=== PATIENT | female | born 1970 | race Caucasian/White ===

== ENCOUNTER → 2018-01-13 | Outpatient (CLI) | payer OTHER ==
--- NOTE | 2018-01-13 16:11 | NM ---
EXAMINATION TYPE: NM bone 3 phase DATE OF EXAM: 01/13/2018 COMPARISON: NONE HISTORY: Osteomyelitis Triple phase bone scintigraphy was performed following the injection of 25.3 mCi Tc 99m MDP. Immedia te images and 5.5 hours post injection images acquired. FINDINGS: Blood flow: Slight increase early flow is in the distal right lower extremity compared to the left. Blood pool: There is increased radiotracer accumulation over the lateral right distal foot compared t o the left on blood pool images. Static images: There is increased radiotracer accumulation within the tarsal regions of the feet bila terally. Abnormal uptake within the distal right foot is not evident IMPRESSION: 1. Uptake pattern appears more suggestive for degenerative changes of the proximal foot. 2. No suspicious changes suggest osteomyelitis are evident. 3. Correlate for possible collection along lateral right foot soft tissues
--- NOTE | 2018-01-13 16:36 | XR ---
EXAMINATION TYPE: XR foot complete RT DATE OF EXAM: 01/13/2018 COMPARISON: None HISTORY: Osteomyelitis right foot distal fifth metatarsal region TECHNIQUE: Three-view right foot FINDINGS: Prominent soft tissue swelling is over the distal fifth metatarsal phalangeal joint space. No underlying radiopaque foreign body is evident. There is a spur at the distal metaphyseal fifth met atarsal. IMPRESSION: 1. No acute changes to suggest osteomyelitis. 2. Soft tissue swelling right foot at the lateral fifth metatarsal phalangeal joint space.
== END | disposition home or self-care (01) ==
LOC: RADNMMAIN 07:38
PROVIDERS: ATTEND Podiatrist Foot & Ankle Surgery
DX: M79.89 Other specified soft tissue disorders (principal)
CPT/HCPCS: 73630; 78315; A9503

== ENCOUNTER → 2018-06-03 | Outpatient (CLI) | payer OTHER ==
--- NOTE | 2018-06-03 12:51 | XR ---
EXAMINATION TYPE: XR foot complete RT DATE OF EXAM: 06/03/2018 CLINICAL HISTORY: Right foot ulcer TECHNIQUE: Frontal, lateral, and oblique images of the right foot are obtained. COMPARISON: 01/13/2018 FINDINGS: Focal soft tissue swelling is seen over the fifth right metatarsal phalangeal joint. Small new osseous erosions are seen of the proximal fifth phalanx proximally and distally, marked on the im ages. No periosteal reaction is evident. Marginal osteophytes of the distal phalanges relate to mild forefoot arthropathy. There are small buster ntar and Achilles enthesophytes noted. IMPRESSION: Two new areas of cortical erosion within the fifth proximal phalanx adjacent to the large soft tissue abnormality overlying the fifth metatarsophalangeal joint. Cortical erosion is suspiciou s for osteomyelitis and could be confirmed with three-phase bone scan.
--- NOTE | 2018-06-03 13:47 | NM ---
EXAMINATION TYPE: NM bone 3 phase DATE OF EXAM: 06/03/2018 COMPARISON: Radiographs of the right foot dated 06/03/2018 HISTORY: Right foot ulceration progressed from the exam of 01/13/2018 with concern for osteomyelitis. Right foot pain. Triple phase bone scintigraphy was performed following the injection of 25.1 mCi Tc 99m MDP. Immedia te images and 5.25 hours post injection images acquired. FINDINGS: There is increased flow, blood pool, and subtle delayed uptake to the fifth metatarsophalan geal joint region and proximal fifth phalanx on the right. Uptake on delayed images only within the h indfeet and mid feet relate to degenerative change. IMPRESSION: Mild uptake on 3 phases at the fifth metatarsophalangeal joint and proximal phalanx on th e right that when correlated with the foot radiographs of the same date represent osteomyelitis of th e proximal fifth phalanx of the right foot.
== END | disposition home or self-care (01) ==
LOC: RADNMMAIN 07:27
PROVIDERS: ATTEND Podiatrist Foot & Ankle Surgery
DX: R93.7 Abnormal findings on diagnostic imaging of other parts of musculoskeletal system (principal); M86.171 Other acute osteomyelitis, right ankle and foot
CPT/HCPCS: 73630; 78315; A9503

== ENCOUNTER → 2018-07-01 | Outpatient (CLI) | payer OTHER ==
[2018-07-01 12:58] LABS: HCT 46.8 % (34.0-46.0); HGB 14.9 gm/dL (11.4-16.0); MCH 26.2 pg (25.0-35.0); MCHC 31.8 g/dL (31.0-37.0); MCV 82.2 fL (80.0-100.0); Mean Platelet Volume 6.8; Platelet Count 264 k/uL (150-450); RBC 5.69 m/uL (3.80-5.40); RDW 13.6 % (11.5-15.5); WBC 8.4 k/uL (3.8-10.6)
[2018-07-01 14:11] LABS: Erythrocyte Sedimentation Rate 5 mm/hr (0-20)
[2018-07-01 20:26] LABS: ALT 36 U/L (8-44); AST 25 U/L (13-35); Alkaline Phosphatase 99 U/L (41-126); C Reactive Protein <0.4 mg/dL (0.0-0.8); Chloride 102 mmol/L (96-109); Globulin 2.2 g/dL (1.6-3.3); Glucose 289 mg/dL (70-110); Sodium 140 mmol/L (135-145); Total Bilirubin 0.3 mg/dL (0.2-1.2); Total Protein 6.6 g/dL (6.2-8.2)
[2018-07-01 22:12] LABS: Hemoglobin A1C 11.2 % (4.0-6.0)
== END | disposition home or self-care (01) ==
LOC: LABWHC1 11:33
PROVIDERS: ATTEND Internal Medicine Infectious Disease
DX: E13.621 Other specified diabetes mellitus with foot ulcer (principal); L97.509 Non-pressure chronic ulcer of other part of unspecified foot with unspecified severity
CPT/HCPCS: 36415; 80053; 83036; 84134; 85027; 85652; 86140

== ENCOUNTER 2018-07-25 07:44 | Emergency (ER) | payer OTHER ==
[2018-07-25 07:49] VITALS: RESP 18
[2018-07-25] MEDS ORDERED: SODIUM CHLORIDE 0.9% 1,000 ML IV STA (07:50)
[2018-07-25] MEDS ORDERED: ACETAMINOPHEN TAB 325 MG TAB PO STA (07:58)
[2018-07-25] MEDS ORDERED: KETOROLAC 30 MG/ML 1 ML VIAL IVP STA (07:58)
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
[2018-07-25 08:28] LABS: Basophils # (A) 0.1 k/uL (0-0.2); Basophils % (A) 0 %; Eosinophils # (A) 0.2 k/uL (0-0.7); Eosinophils % (A) 1 %; HGB 13.9 gm/dL (11.4-16.0); Lymphocytes # (A) 1.1 k/uL (1.0-4.8); Lymphocytes % (A) 6 %; MCH 25.8 pg (25.0-35.0); MCHC 32.4 g/dL (31.0-37.0); MCV 79.9 fL (80.0-100.0); Mean Platelet Volume 7.2; Monocytes # (A) 1.1 k/uL (0-1.0); Monocytes % (A) 6 %; Neutrophils % (A) 86 %; Platelet Count 258 k/uL (150-450); RBC 5.39 m/uL (3.80-5.40); RDW 13.5 % (11.5-15.5); WBC 18.6 k/uL (3.8-10.6)
[2018-07-25 08:37] LABS: Appearance,Urine Turbid (Clear); Bilirubin,Urine Negative (Negative); Blood,Urine Moderate (Negative); Color,Urine Light Yellow; Glucose,Urine (UA) 4+ (Negative); Ketones,Urine Negative (Negative); Leukocyte Esterase,Urine Large (Negative); Nitrite,Urine Negative (Negative); Protein,Urine 2+ (Negative); RBC,Urine 8 /hpf (0-5); Specific Gravity,Urine 1.016 (1.001-1.035); Urobilinogen,Urine <2.0 mg/dL (<2.0)
[2018-07-25 08:44] LABS: ALT 38 U/L (9-52); AST 32 U/L (14-36); Alkaline Phosphatase 135 U/L (38-126); Anion Gap 11 mmol/L; Blood Urea Nitrogen 16 mg/dL (7-17); Calcium 9.2 mg/dL (8.4-10.2); Carbon Dioxide 23 mmol/L (22-30); Chloride 101 mmol/L (98-107); Glucose 311 mg/dL (74-99); Lipase 88 U/L (23-300); Potassium 4.5 mmol/L (3.5-5.1); Sodium 135 mmol/L (137-145); Total Bilirubin 0.6 mg/dL (0.2-1.3); Total Protein 7.1 g/dL (6.3-8.2)
[2018-07-25 09:21] VITALS: BP 120/68; PULSE 102; TEMP 100.3
[2018-07-25] MEDS ORDERED: TOBRAMYCIN 0.3% OPHTH DROPS 5 ML BTL BOTH EYES STA (09:56)
== END 2018-07-25 10:04 | disposition home or self-care (01) ==
LOC: EC 07:44
DX: N12 Tubulo-interstitial nephritis, not specified as acute or chronic (principal); I11.0 Hypertensive heart disease with heart failure; I50.9 Heart failure, unspecified; E11.9 Type 2 diabetes mellitus without complications; E78.5 Hyperlipidemia, unspecified; M19.90 Unspecified osteoarthritis, unspecified site; Z86.14 Personal history of Methicillin resistant Staphylococcus aureus infection; Z95.818 Presence of other cardiac implants and grafts; Z87.891 Personal history of nicotine dependence; Z90.49 Acquired absence of other specified parts of digestive tract; Z87.19 Personal history of other diseases of the digestive system; Z98.890 Other specified postprocedural states; Z79.82 Long term (current) use of aspirin; Z79.1 Long term (current) use of non-steroidal anti-inflammatories (NSAID); Z79.84 Long term (current) use of oral hypoglycemic drugs; Z79.899 Other long term (current) drug therapy
CPT/HCPCS: 36415; 80053; 83605; 83690; 85025; 81001; 87040; 87086; 99283; 96365; 96375; 96361; J0696; J1885; 87077; 87186

== ENCOUNTER → 2018-08-03 | Outpatient (CLI) | payer OTHER ==
--- NOTE | 2018-08-04 09:08 | MR ---
MR left foot with and without contrast HISTORY: Osteomyelitis left foot first toe Multiplanar multisequence and postcontrast images obtained through the left foot following 7.5 cc Leonard avist IV. Correlation to bone scan 06/03/2018, no recent plain film available. There is motion on the exam. There is soft tissue intermediate signal at the level of the first digit of the left foot, bone marro w signal is maintained. Arthropathy noted at the metatarsophalangeal joint of the first digit and int ertarsal joints. There is enhancement of the soft tissues especially at the first digit of the left f oot following contrast administration. No evident periosteal reaction. Flexor and extensor tendons ar e intact. IMPRESSION: Findings compatible with cellulitis. Osteomyelitis is not evident.
== END | disposition home or self-care (01) ==
LOC: RADMRIMAIN 15:15
PROVIDERS: ATTEND Internal Medicine Infectious Disease
DX: M86.8X8 Other osteomyelitis, other site (principal)
CPT/HCPCS: 73720; A9585

== ENCOUNTER → 2018-08-10 | Outpatient (CLI) | payer OTHER ==
--- NOTE | 2018-08-10 13:52 | MR ---
EXAMINATION TYPE: MR foot RT wo/w con DATE OF EXAM: 08/10/2018 COMPARISON: Right foot radiograph dated 06/03/2018 and 3 phase bone scan dated 06/03/2018 HISTORY: Area of interest on ball of foot at 5th digit, marked area CONTRAST: Standard multiplanar, multisequence MRI departmental protocol utilizing 7.5 mL intravenous Gadavist g adolinium contrast. FINDINGS: There is an elongated STIR hyperintense, T1 hypointense, peripherally enhancing elongated f luid collection measuring 1.8 cm in anterior posterior dimension but only 3 mm in transverse dimensio n (greatest thickness). This is seen deep to the area of interest demarcated by a superficial marker. There is pronounced focal subcutaneous edema demonstrated as enhancing T1 hypointensity lateral and at the plantar surface of the fifth metatarsal phalangeal joint. However there is no T1 hypointense i nfiltrating nonenhancing process of the bone marrow throughout the left foot to indicate osteomyeliti s. Small marginal osteophytes are seen of the distal interphalangeal joints and to a lesser degree th e proximal phalangeal joint and metatarsophalangeal joints. Tendons and ligaments appear grossly inta ct. Small joint effusion is also seen of the fifth metatarsal phalangeal joint. IMPRESSION: Cellulitis and elongated abscess measuring 3 mm in greatest thickness lateral to the fifth right meta tarsal phalangeal joint. Extensive subcutaneous edema surrounds the plantar aspect of the fifth metat arsal phalangeal joint and there is a small joint effusion however there is no evidence of osteomyeli tis.
== END | disposition home or self-care (01) ==
LOC: RADMRIMAIN 12:26
PROVIDERS: ATTEND Internal Medicine Infectious Disease
DX: L03.031 Cellulitis of right toe (principal)
CPT/HCPCS: 73720; A9585

== ENCOUNTER 2018-09-07 20:41 | Inpatient (IN) | payer OTHER ==
[2018-09-07] MEDS ORDERED: cefTRIAXone IN SWFI 1,000 MG/10 ML SYRINGE IVP STA (21:49)
[2018-09-07 22:11] LABS: Basophils # (A) 0.1 k/uL (0-0.2); Basophils % (A) 1 %; Eosinophils # (A) 0.2 k/uL (0-0.7); Eosinophils % (A) 3 %; HCT 39.1 % (34.0-46.0); HGB 12.6 gm/dL (11.4-16.0); Lymphocytes # (A) 1.8 k/uL (1.0-4.8); Lymphocytes % (A) 21 %; MCHC 32.3 g/dL (31.0-37.0); MCV 80.4 fL (80.0-100.0); Mean Platelet Volume 7.5; Monocytes # (A) 0.6 k/uL (0-1.0); Monocytes % (A) 7 %; Neutrophils # (A) 5.8 k/uL (1.3-7.7); Neutrophils % (A) 66 %; Platelet Count 304 k/uL (150-450); RBC 4.86 m/uL (3.80-5.40); RDW 14.2 % (11.5-15.5); WBC 8.8 k/uL (3.8-10.6)
[2018-09-07] MEDS: SODIUM CHLORIDE 0.9% 500 ML 500 ML IV SCH ×2 (22:14→22:44)
[2018-09-07 22:26] LABS: ALT 44 U/L (9-52); AST 19 U/L (14-36); Albumin 3.7 g/dL (3.5-5.0); Alkaline Phosphatase 98 U/L (38-126); Anion Gap 8 mmol/L; Blood Urea Nitrogen 21 mg/dL (7-17); Calcium 9.6 mg/dL (8.4-10.2); Carbon Dioxide 29 mmol/L (22-30); Chloride 99 mmol/L (98-107); Glucose 234 mg/dL (74-99); Sodium 136 mmol/L (137-145); Total Bilirubin 0.3 mg/dL (0.2-1.3); Total Protein 6.6 g/dL (6.3-8.2)
[2018-09-07 22:27] LABS: Appearance,Urine Clear (Clear); Bilirubin,Urine Negative (Negative); Blood,Urine Negative (Negative); Color,Urine Light Yellow; Glucose,Urine (UA) 4+ (Negative); Ketones,Urine Negative (Negative); Leukocyte Esterase,Urine Moderate (Negative); Mucus,Urine Rare /hpf; Nitrite,Urine Negative (Negative); PH, Urine 5.5 (5.0-8.0); Protein,Urine Negative (Negative); RBC,Urine 1 /hpf (0-5); Squamous Epithelial Cell,Urine 2 /hpf (0-4); Urobilinogen,Urine <2.0 mg/dL (<2.0); WBC,Urine 7 /hpf (0-5)
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
--- NOTE | 2018-09-07 23:01 | XR ---
EXAM: XR Right Foot Complete, 3 or More Views CLINICAL HISTORY: ITS.REASON XR Reason: cellulitis TECHNIQUE: Frontal, lateral and oblique views of the right foot. COMPARISON: 06/03/2018 x-ray and 08/10/2018 MRI FINDINGS: Bones/joints: Small erosion of the proximal medial aspect of the proximal phalanx of the fifth digit, appears new since prior. Similar small erosion at the distal lateral aspect. Calcaneal enthesophytes. No acute fracture. No dislocation. Soft tissues: Soft tissue swelling adjacent to the fifth metatarsophalangeal joint laterally. Appears similar to the priors. Somewhat more mottled appearance of the fat near the fifth MTP joint as well as other areas in the foot and lower leg. No radiopaque foreign body. IMPRESSION: 1. Soft tissue swelling adjacent to the fifth metatarsophalangeal joint laterally. Appears similar to the priors. Somewhat more mottled appearance of the fat near the fifth MTP joint as well as other areas in the foot and lower leg. This may reflect increased edema. However, soft tissue gas, not excluded. 2. Small erosion of the proximal medial aspect of the proximal phalanx of the fifth digit, appears new since prior. Similar small erosion at the distal lateral aspect. 3. Could consider CT to better assess for soft tissue gas and possibly follow-up MRI to better assess for osteomyelitis. <MYCVCSECTION> Critical [employer] 09/07/18 23:15 Verify Receipt Verified receipt with PA. Han on 09/07 23:14 (-04:00) 09/07/18 23:29 Call From [facility] Tech Called on 09/07 23:29 (- 04:00)
[2018-09-07] MEDS ORDERED: CLINDAMYCIN 600 MG in DEXTROSE 5% IN WATER 50 ML IVPB STA ×2 (23:39)
[2018-09-07] MEDS ORDERED: ONDANSETRON 4 MG/2 ML VIAL IVP PRN (23:51)
[2018-09-07] MEDS ORDERED: ACETAMINOPHEN TAB 325 MG TAB PO PRN (23:51)
[2018-09-07] MEDS ORDERED: NALOXONE 0.4 MG/ML 1 ML VIAL IV PRN (23:51)
[2018-09-08] MEDS: SODIUM CHLORIDE 0.9% 1,000 ML IV SCH ×3 (00:27→21:48)
--- NOTE | 2018-09-08 00:28 | CT ---
EXAM: CT Right Lower Extremity With Intravenous Contrast, Foot CLINICAL HISTORY: ITS.REASON CT Reason: Pain, cellulitis TECHNIQUE: Axial computed tomography images of the right foot with intravenous contrast. CTDI is 8.6 mGy and DLP is 229.3 mGy-cm. This CT exam was performed using one or more of the following dose reduction techniques: automated exposure control, adjustment of the mA and/or kV according to patient size, and/or use of iterative reconstruction technique. COMPARISON: X-ray today and 06/03/2018; MRI 08/10/18. FINDINGS: Bones/joints: Small erosions of the fifth proximal phalanx along the lateral aspect distally and medial aspect proximally. Query small joint effusion. No acute fracture. No dislocation. Soft tissues: No evidence of soft tissue gas. Soft tissue swelling adjacent to the fifth metatarsophalangeal joint, similar to the prior studies. Overall mild increase of the soft tissue edema of the foot, mostly along the lateral and dorsal foot. As on the prior MRI, there is a small irregular rim-enhancing fluid collection along the lateral and plantar aspect of the fifth distal metatarsal and MTP joint. It is similar or slightly larger along the plantar aspect. Appears to be just subjacent to the skin surface. Measures approximately 17 x 16 x 7 mm at the plantar aspect. No radiopaque foreign body. IMPRESSION: 1. No evidence of soft tissue gas. 2. Small rim-enhancing fluid collection along the lateral and plantar aspect of the fifth distal MTP joint region, similar or slightly larger than the prior MRI. 3. Mildly increased soft tissue swelling mostly along the lateral and dorsal aspect of the foot. 4. Small erosions of the fifth proximal phalanx. 5. Query small joint effusion at the fifth MTP joint <MYCVCSECTION> Critical [employer] 09/08/18 00:39 Verify Receipt Verified receipt with FUNMI Martin, given to Dr. May on 09/08 00:39 (-04:00)
[2018-09-08 07:21] LABS: Glucose,Whole Blood 232 mg/dL (75-99)
[2018-09-08] MEDS: MELOXICAM 7.5 MG TAB PO SCH (10:32)
[2018-09-08] MEDS: MECLIZINE 25 MG TAB PO SCH ×3 (10:33→21:15)
[2018-09-08] MEDS: LISINOPRIL 2.5 MG TAB PO SCH (10:33)
[2018-09-08] MEDS: FUROSEMIDE 20 MG TAB PO SCH (10:33)
[2018-09-08] MEDS: CYCLOBENZAPRINE 10 MG TAB PO SCH ×2 (10:33→21:15)
[2018-09-08] MEDS: MULTIVITAMINS, THERA 1 EACH TAB PO SCH (10:34)
[2018-09-08] MEDS: ASPIRIN 81 MG PO SCH (10:34)
[2018-09-08] MEDS: SPIRONOLACTONE 25 MG TAB PO SCH (10:34)
[2018-09-08] MEDS: metFORMIN 500 MG TAB PO SCH ×2 (10:34→21:15)
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
[2018-09-08 12:05] LABS: Glucose,Whole Blood 259 mg/dL (75-99)
[2018-09-08 17:04] LABS: Glucose,Whole Blood 219 mg/dL (75-99)
[2018-09-08] MEDS: glipiZIDE 10 MG TAB PO SCH (17:33)
[2018-09-08] MEDS: ATORVASTATIN 10 MG TAB PO SCH (21:15)
[2018-09-08 21:24] LABS: Glucose,Whole Blood 204 mg/dL (75-99)
[2018-09-09] MEDS: SODIUM CHLORIDE 0.9% 1,000 ML IV SCH ×2 (04:58→16:23)
[2018-09-09 07:15] LABS: Glucose,Whole Blood 146 mg/dL (75-99)
[2018-09-09] MEDS: MELOXICAM 7.5 MG TAB PO SCH (07:42)
[2018-09-09] MEDS: SPIRONOLACTONE 25 MG TAB PO SCH (07:42)
[2018-09-09] MEDS: metFORMIN 500 MG TAB PO SCH ×2 (07:42→19:38)
[2018-09-09] MEDS: MECLIZINE 25 MG TAB PO SCH ×3 (07:42→19:38)
[2018-09-09] MEDS: CYCLOBENZAPRINE 10 MG TAB PO SCH ×2 (07:44→19:38)
[2018-09-09] MEDS: LISINOPRIL 2.5 MG TAB PO SCH (07:44)
[2018-09-09] MEDS: ASPIRIN 81 MG PO SCH (07:44)
[2018-09-09] MEDS: glipiZIDE 10 MG TAB PO SCH ×2 (07:44→16:25)
[2018-09-09] MEDS: MULTIVITAMINS, THERA 1 EACH TAB PO SCH (07:44)
[2018-09-09] MEDS: FUROSEMIDE 20 MG TAB PO SCH (07:44)
[2018-09-09 11:32] LABS: Glucose,Whole Blood 174 mg/dL (75-99)
--- NOTE | 2018-09-09 12:03 | P.PN ---
Subjective Conferred with Dr. Gavin. His requesting Dr. Mart for I&D of right foot Objective - Vital Signs Vital signs: Vital Signs Temp 98.0 F 09/09/18 07:00 Pulse 77 09/09/18 08:00 Resp 16 09/09/18 08:00 BP 129/83 09/09/18 07:00 Pulse Ox 97 09/09/18 07:00 Intake & Output 09/08/18 09/09/18 09/09/18 18:59 06:59 18:59 Intake Total 2594 1800 Output Total 1500 Balance 2594 1800 -1500 Intake: Intake, IV Titration 800 800 Amount Sodium Chloride 0.9% 1, 800 800 000 ml @ 100 mls/hr IV . Q10H SHANNAN Rx#:[id number] Oral 1794 1000 Output: Urine 1500 Other: Voiding Method Toilet Bedside Commode Bedside Commode # Voids 1 2 - Constitutional General appearance: Present: mild distress - EENT Eyes: Present: PERRLA Ears: bilateral: normal - Neck Neck: Present: normal ROM - Respiratory Respiratory: bilateral: CTA - Cardiovascular Rhythm: regular - Gastrointestinal General gastrointestinal: Present: soft - Integumentary Integumentary Comment(s): Erythema to right foot ankle Integumentary: Present: cellulitis - Neurologic Neurologic: Present: CNII-XII intact - Musculoskeletal Musculoskeletal: Present: generalized weakness - Psychiatric Psychiatric: Present: A&O x's 3, appropriate affect, intact judgment & insight - Labs CBC & Chem 7: 09/07/18 22:00 09/07/18 22:00 Labs: Abnormal Lab Results - Last 24 Hours (Table) 09/08/18 09/08/18 09/08/18 Range/Units 11:49 16:52 21:07 POC Glucose (mg/dL) 259 H 219 H 204 H (75-99) mg/dL 09/09/18 09/09/18 Range/Units 07:07 11:17 POC Glucose (mg/dL) 146 H 174 H (75-99) mg/dL Microbiology - Last 24 Hours (Table) 09/07/18 22:00 Blood Culture - Preliminary Blood No Growth after 24 hours 09/07/18 22:00 Urine Culture - Preliminary Urine,Voided Assessment and Plan Plan: Assessment Cellulitis right foot chronic diabetic ulcer failed outpatient positive Klebsiella Heart failure treated by Dr. Manzano Hyperlipidemia Hypertension Osteoarthritis Continue consultation with Dr. Romaine Gonsalez and orthopedics
[2018-09-09 15:57] VITALS: BMI 30.1
[2018-09-09 16:59] LABS: Glucose,Whole Blood 252 mg/dL (75-99)
[2018-09-09] MEDS: ATORVASTATIN 10 MG TAB PO SCH (19:38)
[2018-09-09 20:02] LABS: Glucose,Whole Blood 247 mg/dL (75-99)
[2018-09-10] MEDS: SODIUM CHLORIDE 0.9% 1,000 ML IV SCH ×3 (04:29→21:05)
[2018-09-10 07:37] LABS: Glucose,Whole Blood 203 mg/dL (75-99)
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
[2018-09-10] MEDS: metFORMIN 500 MG TAB PO SCH ×2 (08:19→21:06)
[2018-09-10] MEDS: CYCLOBENZAPRINE 10 MG TAB PO SCH ×2 (08:19→21:06)
[2018-09-10] MEDS: MECLIZINE 25 MG TAB PO SCH ×3 (08:19→21:06)
[2018-09-10] MEDS: MULTIVITAMINS, THERA 1 EACH TAB PO SCH (08:19)
[2018-09-10] MEDS: MELOXICAM 7.5 MG TAB PO SCH (08:19)
[2018-09-10] MEDS: FUROSEMIDE 20 MG TAB PO SCH (08:19)
[2018-09-10] MEDS: ASPIRIN 81 MG PO SCH (08:19)
[2018-09-10] MEDS: LISINOPRIL 2.5 MG TAB PO SCH (08:19)
[2018-09-10] MEDS: SPIRONOLACTONE 25 MG TAB PO SCH (08:19)
[2018-09-10] MEDS: glipiZIDE 10 MG TAB PO SCH ×2 (08:20→17:37)
[2018-09-10 11:46] LABS: Glucose,Whole Blood 264 mg/dL (75-99)
--- NOTE | 2018-09-10 14:11 | P.PN ---
Subjective Patient still complaining of pain in the right lower extremity. Orthopedic to follow the patient for possible I&D No chest pain or racing heart, no cough no shortness of breath. Objective - Vital Signs Vital signs: Vital Signs Temp 98 F 09/10/18 07:00 Pulse 73 09/10/18 07:00 Resp 18 09/10/18 08:00 BP 126/83 09/10/18 07:00 Pulse Ox 98 09/10/18 07:00 Intake & Output 09/09/18 09/10/18 09/10/18 18:59 06:59 18:59 Intake Total 1900 Output Total 1750 Balance -1750 1900 Weight 77.111 kg Intake: Intake, IV Titration 800 Amount Sodium Chloride 0.9% 1, 800 000 ml @ 100 mls/hr IV . Q10H [facility] Rx#:[id number] Oral 1100 Output: Urine 1750 Other: Voiding Method Bedside Commode Bedside Commode Bedside Commode # Voids 3 - Exam On exam, alert and oriented x3. HEENT: Conjunctivae normal. eyes normal. NECK: No JVD. No thyroid enlargement. No LNs CARDIOVASCULAR: S1, S2 muffled. No murmur RESPIRATION: Breath sounds diminished in the bases. No rhonchi or crackles. No bronchial breathing. ABDOMEN: Soft, nontender . No guarding. no masses palpable. No ascites, No hepatosplenomegaly.Bowel sounds heard. LEGS: Erythema on the dorsum of the right foot. Patient is also having small fluid collection on the lateral side lateral to the little toe. Patient is having pain and tenderness at the site. NERVOUS SYSTEM: Cranial N 2-12 grossly normal. Moves all 4 limbs. No focal deficits. No sensory deficit. No signs of cerebellar dysfucntion. Skin: no ulcer no rash - Labs CBC & Chem 7: 09/07/18 22:00 09/07/18 22:00 Labs: Abnormal Lab Results - Last 24 Hours (Table) 09/09/18 09/09/18 09/10/18 Range/Units 16:48 19:42 07:27 POC Glucose (mg/dL) 252 H 247 H 203 H (75-99) mg/dL 09/10/18 Range/Units 11:34 POC Glucose (mg/dL) 264 H (75-99) mg/dL Microbiology - Last 24 Hours (Table) 09/07/18 22:00 Blood Culture - Preliminary Blood No Growth after 48 hours 09/07/18 22:00 Urine Culture - Final Urine,Voided Assessment and Plan Assessment: - Cellular the right foot failed outpatient treatment. Cultures positive for Klebsiella - Heart failure - Hyperlipidemia - Hypertension - History versus arthritis Plan - Continue antibiotics as per infectious disease - Orthopedic surgery to follow up on the patient with possible I&D - Continue rest of home medications - We'll continue to follow the patient Time with Patient: Greater than 30
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
[2018-09-10 17:12] LABS: Glucose,Whole Blood 143 mg/dL (75-99)
[2018-09-10 20:33] LABS: Glucose,Whole Blood 227 mg/dL (75-99)
[2018-09-10] MEDS: ATORVASTATIN 10 MG TAB PO SCH (21:06)
[2018-09-10] MEDS: INSULIN ASPART (NovoLOG) 100 UNIT/ML VIAL SQ SCH (21:06)
--- NOTE | 2018-09-10 23:11 | P.PN ---
Subjective Progress Note Date: 09/10/18 47-year-old woman who has a complex history regarding the difficulty with her left foot. She had been seen in the wound healing Center with Dr. Mclean and I did have the pleasure of seeing her also. When she was seen last month workup was initiated and MRI failed to reveal evidence of osteomyelitis of the abnormality to the lateral fifth metatarsal area, but there was evidence of a fluid collection consistent with abscess. She was referred back to her designer/writer for incision and drainage. The patient relates that needle aspiration occurred culture was sent to the laboratory and now has developed an extensive cellulitis of the foot with erythema and swelling pain and tenderness. She was admitted antibiotic therapy has been initiated. She relates completed course feels just slightly better. Pain is well controlled. 09/10/2018 patient is feeling somewhat better. She's been seen by orthopedics and there is plans for incision and drainage soon. Objective - Vital Signs Vital signs: Vital Signs Temp 98.4 F 09/10/18 19:30 Pulse 83 09/10/18 19:30 Resp 16 09/10/18 19:30 BP 119/77 09/10/18 19:30 Pulse Ox 97 09/10/18 19:30 Intake & Output 09/10/18 09/10/18 09/11/18 06:59 18:59 06:59 Intake Total 1900 Balance 1900 Intake: Intake, IV Titration 800 Amount Sodium Chloride 0.9% 1, 800 000 ml @ 100 mls/hr IV . Q10H SHANNAN Rx#:[id number] Oral 1100 Other: Voiding Method Bedside Commode Bedside Commode Bedside Commode # Voids 3 2 - Labs CBC & Chem 7: 09/07/18 22:00 09/07/18 22:00 Labs: Abnormal Lab Results - Last 24 Hours (Table) 09/10/18 09/10/18 09/10/18 Range/Units 07:27 11:34 16:44 POC Glucose (mg/dL) 203 H 264 H 143 H (75-99) mg/dL 09/10/18 Range/Units 20:20 POC Glucose (mg/dL) 227 H (75-99) mg/dL Microbiology - Last 24 Hours (Table) 09/07/18 22:00 Blood Culture - Preliminary Blood No Growth after 48 hours Laboratory Results WBC 8.8 k/uL (3.8-10.6) 09/07/18 22:00 RBC 4.86 m/uL (3.80-5.40) 09/07/18 22:00 Hgb 12.6 gm/dL (11.4-16.0) 09/07/18 22:00 Hct 39.1 % (34.0-46.0) 09/07/18 22:00 MCV 80.4 fL (80.0-100.0) 09/07/18 22:00 MCH 26.0 pg (25.0-35.0) 09/07/18 22:00 MCHC 32.3 g/dL (31.0-37.0) 09/07/18 22:00 RDW 14.2 % (11.5-15.5) 09/07/18 22:00 Plt Count 304 k/uL (150-450) 09/07/18 22:00 Neutrophils % 66 % 09/07/18 22:00 Lymphocytes % 21 % 09/07/18 22:00 Monocytes % 7 % 09/07/18 22:00 Eosinophils % 3 % 09/07/18 22:00 Basophils % 1 % 09/07/18 22:00 Neutrophils # 5.8 k/uL (1.3-7.7) 09/07/18 22:00 Lymphocytes # 1.8 k/uL (1.0-4.8) 09/07/18 22:00 Monocytes # 0.6 k/uL (0-1.0) 09/07/18 22:00 Eosinophils # 0.2 k/uL (0-0.7) 09/07/18 22:00 Basophils # 0.1 k/uL (0-0.2) 09/07/18 22:00 Sodium 136 mmol/L (137-145) L 09/07/18 22:00 Potassium 5.0 mmol/L (3.5-5.1) 09/07/18 22:00 Chloride 99 mmol/L (98-107) 09/07/18 22:00 Carbon Dioxide 29 mmol/L (22-30) 09/07/18 22:00 Anion Gap 8 mmol/L 09/07/18 22:00 BUN 21 mg/dL (7-17) H 09/07/18 22:00 Creatinine 0.62 mg/dL (0.52-1.04) 04/23/19 22:00 Est GFR (CKD-EPI)AfAm >90 (>60 ml/min/1.73 sqM) 09/07/18 22:00 Est GFR (CKD-EPI)NonAf >90 (>60 ml/min/1.73 sqM) 09/07/18 22:00 Glucose 234 mg/dL (74-99) H 09/07/18 22:00 POC Glucose (mg/dL) 227 mg/dL (75-99) H 09/10/18 20:20 POC Glu [employer] Tamika Beltran 09/10/18 20:20 Plasma Lactic Acid Chai 1.8 mmol/L (0.7-2.0) 09/07/18 22:00 Calcium 9.6 mg/dL (8.4-10.2) 09/07/18 22:00 Total Bilirubin 0.3 mg/dL (0.2-1.3) 09/07/18 22:00 AST 19 U/L (14-36) 09/07/18 22:00 ALT 44 U/L (9-52) 09/07/18 22:00 Alkaline Phosphatase 98 U/L (38-126) 09/07/18 22:00 Total Protein 6.6 g/dL (6.3-8.2) 09/07/18 22:00 Albumin 3.7 g/dL (3.5-5.0) 09/07/18 22:00 Urine Color Light Yellow 09/07/18 22:00 Urine Appearance Clear (Clear) 09/07/18 22:00 Urine pH 5.5 (5.0-8.0) 09/07/18 22:00 Ur Specific Momence 1.010 (1.001-1.035) 09/07/18 22:00 Urine Protein Negative (Negative) 09/07/18 22:00 Urine Glucose (UA) 4+ (Negative) H 09/07/18 22:00 Urine Ketones Negative (Negative) 09/07/18 22:00 Urine Blood Negative (Negative) 09/07/18 22:00 Urine Nitrite Negative (Negative) 09/07/18 22:00 Urine Bilirubin Negative (Negative) 09/07/18 22:00 Urine Urobilinogen <2.0 mg/dL (<2.0) 09/07/18 22:00 Ur Leukocyte Esterase Moderate (Negative) H 09/07/18 22:00 Urine RBC 1 /hpf (0-5) 09/07/18 22:00 Urine WBC 7 /hpf (0-5) H 09/07/18 22:00 Ur Squamous Epith Cells 2 /hpf (0-4) 09/07/18 22:00 Urine Mucus Rare /hpf (None) H 09/07/18 22:00 Urine HCG, Qual Not Detected (Not Detectd) 09/07/18 22:00 Microbiology 09/07/18 22:00 Blood Blood Culture - Preliminary No Growth after 48 hours 09/07/18 22:00 Urine,Voided Urine Culture - Final Assessment and Plan (1) Cellulitis Current Visit: Yes Status: Acute Code(s): L03.90 - CELLULITIS, UNSPECIFIED SNOMED Code(s): 288387098 (2) Abscess of right foot Narrative/Plan: 47-year-old woman who has a history of diabetes and a nonhealing area to the lateral aspect of her foot at the fifth metatarsal head had been evaluated the wound healing Center. Because of this imaging studies were performed and no osteomyelitis was noted. However there is evidence of a small abscess in the tissue. The patient was seen by her designer/writer aspiration was performed. However the patient is not developed an extensive cellulitis to this area. The case is discussed with the primary care team we've asked for a foot and ankle orthopedic surgical consult for the incision and drainage and debridement of this area to allow it to heal more fully. She'll need to get into some kind of offloading device after the surgery. For antibiotic therapy Rocephin 2 g a day are given for the Klebsiella oxytoca that has been isolated. Given that there is no osteomyelitis when she is improved should be able utilize oral antibiotic therapy at discharge. Pain control appears to be adequate. Multivitamin is added. Patient believes she is up-to-date with her tetanus. 09/10/2018 patient feels a little better today. She has been seen by orthopedic surgery and is planned for incision and drainage of the site tomorrow. Likely be loosely closed in a row. Plans for antibiotic therapy based on the findings at the time of surgery. Recent outpatient MRI did not reveal evidence of underlying osteomyelitis but surgery will further help define this issue. Pain control is adequate. Current Visit: Yes Status: Acute Code(s): L02.611 - CUTANEOUS ABSCESS OF RIGHT FOOT SNOMED Code(s): 914192644
[2018-09-11 07:05] LABS: Glucose,Whole Blood 221 mg/dL (75-99)
[2018-09-11 07:22] LABS: HGB 12.1 gm/dL (11.4-16.0); MCH 25.1 pg (25.0-35.0); MCHC 31.1 g/dL (31.0-37.0); MCV 80.8 fL (80.0-100.0); Mean Platelet Volume 6.9; Platelet Count 422 k/uL (150-450); RBC 4.83 m/uL (3.80-5.40); RDW 14.6 % (11.5-15.5); WBC 10.2 k/uL (3.8-10.6)
[2018-09-11 07:41] LABS: Anion Gap 10 mmol/L; Blood Urea Nitrogen 20 mg/dL (7-17); Calcium 9.1 mg/dL (8.4-10.2); Carbon Dioxide 26 mmol/L (22-30); Chloride 103 mmol/L (98-107); Glucose 229 mg/dL (74-99); Potassium 4.6 mmol/L (3.5-5.1); Sodium 139 mmol/L (137-145)
[2018-09-11] MEDS: glipiZIDE 10 MG TAB PO SCH ×2 (07:46→16:54)
[2018-09-11] MEDS: metFORMIN 500 MG TAB PO SCH ×2 (07:46→20:47)
[2018-09-11] MEDS: SPIRONOLACTONE 25 MG TAB PO SCH (07:46)
[2018-09-11] MEDS: CYCLOBENZAPRINE 10 MG TAB PO SCH ×2 (07:46→20:47)
[2018-09-11] MEDS: FUROSEMIDE 20 MG TAB PO SCH (07:46)
[2018-09-11] MEDS: MECLIZINE 25 MG TAB PO SCH ×3 (07:46→20:47)
[2018-09-11] MEDS: MELOXICAM 7.5 MG TAB PO SCH (07:46)
[2018-09-11] MEDS: LISINOPRIL 2.5 MG TAB PO SCH (07:46)
[2018-09-11] MEDS: MULTIVITAMINS, THERA 1 EACH TAB PO SCH (07:47)
[2018-09-11] MEDS: ASPIRIN 81 MG PO SCH (07:47)
[2018-09-11] MEDS: SODIUM CHLORIDE 0.9% 1,000 ML IV SCH ×2 (07:47→13:09)
[2018-09-11] MEDS: INSULIN ASPART (NovoLOG) 100 UNIT/ML VIAL SQ SCH ×4 (07:50→20:47)
[2018-09-11] MEDS ORDERED: SODIUM CHLORIDE 0.9% 1,000 ML IV ONE (09:46)
--- NOTE | 2018-09-11 10:28 | P.OP ---
Date of Procedure: 09/11/18 Preoperative Diagnosis: Right foot cellulitis with possible abscess Postoperative Diagnosis: Right foot cellulitis Procedure(s) Performed: Incision right distal lateral foot with irrigation and debridement Anesthesia: PASCUAL Surgeon: Sharad Celeste Estimated Blood Loss (ml): 3 Pathology: other (Cultures) Condition: stable Disposition: PACU Indications for Procedure: 47-year-old lady seen with her right foot lateral fifth metatarsal distal area of swelling in cellulitis. There was concern for possible abscess. We discussed incision with irrigation and debridement. Patient was agreeable. Consent was obtained. Operative Findings: see description of procedure Description of Procedure: Patient was taken to the operative suite. Patient underwent a general anesthetic by the department of anesthesia. A tourniquet was placed proximal right thigh. The right lower extremity was prepped and draped in the normal sterile orthopedic fashion. I made an incision along the area of the lateral distal fifth metatarsal were had the swelling. The incision was approximately 3 cm in length. I used a hemostat to dissect bluntly and I did not encounter any abscess. I explored the wound meticulously. There was no evidence for abscess. There was a small area of callus formation along the plantar aspect of the distal fifth metatarsal. This area was also explored and I did note some serous fluid but no purulence. Cultures were obtained of that area. Utilizing a 15 blade some necrotic tissue was debrided. This entailed mainly superficial callus tissue. The wounds were now irrigated with saline solution. I used one single nylon suture to loosely approximate that lateral incision. Sterile dressings were applied. No tourniquet was utilized. The patient was awakened and transferred to recovery stable condition.
[2018-09-11] MEDS ORDERED: fentaNYL (PF) 50 MCG/ML 2 ML AMP ONE (10:29)
[2018-09-11] MEDS ORDERED: LIDOCAINE 1% INJ 10MG/ML (20 ML MDV) ONE (10:29)
[2018-09-11] MEDS ORDERED: PHENYLEPHRINE-0.9% NACL SYG 1 MG/10 ML SYRINGE ONE (10:29)
[2018-09-11] MEDS ORDERED: ONDANSETRON 4 MG/2 ML VIAL ONE (10:29)
[2018-09-11] MEDS ORDERED: MIDAZOLAM 2 MG/2 ML VIAL ONE (10:29)
[2018-09-11] MEDS ORDERED: PROPOFOL 10 MG/ML 20 ML VIAL IV ONE (10:29)
[2018-09-11 10:33] LABS: Glucose,Whole Blood 179 mg/dL (75-99)
[2018-09-11 12:28] LABS: Glucose,Whole Blood 216 mg/dL (75-99)
--- NOTE | 2018-09-11 14:13 | XR ---
EXAMINATION TYPE: XR chest 1V DATE OF EXAM: 09/11/2018 HISTORY: R/o CHF. REFERENCE: NONE. FINDINGS: Heart size upper limits of normal. Pulmonary vascularity is within normal limits. There is some atelectasis at the left lung base. Lungs are otherwise clear. Pleural spaces are clear. IMPRESSION: PLATELIKE ATELECTASIS, LEFT LUNG BASE.
--- NOTE | 2018-09-11 15:05 | P.PN ---
Subjective 47-year-old female was admitted secondary to wound infection of the left fifth metatarsal area. Patient underwent incision and drainage patient is a significant swelling in that area and the patient is on ceftriaxone as the possible organism was believed to be Still oxytoca from her previous cultures. Patient is comparing of some lightheadedness patient blood pressure is a low. Patient does have history of congestive heart failure apparently ejection fraction. which did improve I do not have any echocardiogram available. For her congestive heart failure patient is on lisinopril as well as Lasix both are contributing to her shortness of breath will gently hydrate her and continue with Rocephin and monitor for any volume overload. We'll also obtain a chest x- ray to make sure patient doesn't have any pulmonary edema clinically patient does not have any elevated JVD and crackles on lung exam. Constitutional: Denied any fatigue denied any fever. Cardio vascular: denied any chest pain, palpitations Gastrointestinal denied any nausea vomiting Pulmonary: Denied any shortness of breath cough Neurologic denied any new focal deficits All inpatient medications were reviewed and appropriate changes in these medications as dictated in the interval history and assessment and plan. Objective - Vital Signs Vital signs: Vital Signs Temp 97.3 F L 09/11/18 10:25 Pulse 80 09/11/18 12:45 Resp 16 09/11/18 10:50 BP 110/72 09/11/18 12:45 Pulse Ox 93 L 09/11/18 10:50 Intake & Output 09/10/18 09/11/18 09/11/18 18:59 06:59 18:59 Intake Total 750 Output Total 3 Balance 747 Intake: IV 350 Oral 400 Output: Estimated Blood Loss 3 Other: Voiding Method Bedside Commode Bedside Commode # Voids 2 2 2 - Exam PHYSICAL EXAMINATION: GENERAL: The patient is alert and oriented x3, not in any acute distress. Well developed, well nourished. HEENT: Pupils are round and equally reacting to light. EOMI. No scleral icterus. No conjunctival pallor. Normocephalic, atraumatic. No pharyngeal erythema. No thyromegaly. CARDIOVASCULAR: S1 and S2 present. No murmurs, rubs, or gallops. PULMONARY: Chest is clear to auscultation, no wheezing or crackles. ABDOMEN: Soft, nontender, nondistended, normoactive bowel sounds. No palpable organomegaly. MUSCULOSKELETAL: No joint swelling or deformity. EXTREMITIES: No cyanosis, clubbing, or pedal edema. Left foot metatarsal dorsal ulcer which was post surgically Paxil does have edema around that area and some redness. NEUROLOGICAL: Gross neurological examination did not reveal any focal deficits. SKIN: No rashes. - Labs CBC & Chem 7: 09/11/18 07:00 09/11/18 07:00 Labs: Abnormal Lab Results - Last 24 Hours (Table) 09/10/18 09/10/18 09/11/18 Range/Units 16:44 20:20 06:51 BUN (7-17) mg/dL Creatinine (0.52-1.04) mg/dL Glucose (74-99) mg/dL POC Glucose (mg/dL) 143 H 227 H 221 H (75-99) mg/dL 09/11/18 09/11/18 09/11/18 Range/Units 07:00 10:29 12:16 BUN 20 H (7-17) mg/dL Creatinine 0.49 L (0.52-1.04) mg/dL Glucose 229 H (74-99) mg/dL POC Glucose (mg/dL) 179 H 216 H (75-99) mg/dL Microbiology - Last 24 Hours (Table) 09/07/18 22:00 Blood Culture - Preliminary Blood No Growth after 72 hours Assessment and Plan Plan: - Cellular the right foot with the infected wound on the dorsum of the left fourth metatarsal area failed outpatient treatment. Cultures positive for Klebsiella, continue with Rocephin -Dizziness secondary to hypotension which is related to above-mentioned medications further management as mentioned above -Congestive heart failure: Ejection fraction is presently unknown further management of her lightheadedness as mentioned above patient appears to be hypovolemic patient was started on IV fluids. - Hyperlipidemia - Hypertension -Type 2 diabetes mellitus and diabetic foot ulcers blood sugars are not well- controlled will to uptitrate her diabetic medications Patient will need pharmacologic GI and DVT prophylaxis
[2018-09-11 16:50] LABS: Glucose,Whole Blood 267 mg/dL (75-99)
[2018-09-11] MEDS: IBUPROFEN 400 MG TAB PO PRN (16:53)
[2018-09-11] MEDS: HEPARIN SODIUM,PORCINE 5,000 UNIT/ML 1 ML VIAL SQ SCH ×2 (16:54→23:18)
[2018-09-11] MEDS: ATORVASTATIN 10 MG TAB PO SCH (20:47)
[2018-09-11] MEDS: FAMOTIDINE 20 MG TAB PO SCH (20:47)
[2018-09-11 20:52] LABS: Glucose,Whole Blood 367 mg/dL (75-99)
[2018-09-12] MEDS: SODIUM CHLORIDE 0.9% 1,000 ML IV SCH (03:22)
[2018-09-12 07:23] LABS: Glucose,Whole Blood 190 mg/dL (75-99)
[2018-09-12] MEDS: FAMOTIDINE 20 MG TAB PO SCH ×2 (07:39→20:00)
[2018-09-12] MEDS: MULTIVITAMINS, THERA 1 EACH TAB PO SCH (07:39)
[2018-09-12] MEDS: ASPIRIN 81 MG PO SCH (07:39)
[2018-09-12] MEDS: HEPARIN SODIUM,PORCINE 5,000 UNIT/ML 1 ML VIAL SQ SCH ×2 (07:39→15:36)
[2018-09-12] MEDS: MECLIZINE 25 MG TAB PO SCH ×3 (07:39→20:00)
[2018-09-12] MEDS: CYCLOBENZAPRINE 10 MG TAB PO SCH ×2 (07:39→20:00)
[2018-09-12] MEDS: glipiZIDE 10 MG TAB PO SCH ×2 (07:39→17:36)
[2018-09-12] MEDS: metFORMIN 500 MG TAB PO SCH ×2 (07:39→20:00)
[2018-09-12] MEDS: INSULIN ASPART (NovoLOG) 100 UNIT/ML VIAL SQ SCH ×4 (07:40→20:11)
[2018-09-12 07:48] LABS: Anion Gap 7 mmol/L; Blood Urea Nitrogen 18 mg/dL (7-17); Calcium 8.8 mg/dL (8.4-10.2); Carbon Dioxide 28 mmol/L (22-30); Chloride 104 mmol/L (98-107); Glucose 212 mg/dL (74-99); Potassium 4.6 mmol/L (3.5-5.1); Sodium 139 mmol/L (137-145)
--- NOTE | 2018-09-12 10:45 | P.PN ---
Subjective Progress Note Date: 09/12/18 Principal diagnosis: Status post I&D right foot Patient evaluated today at bedside, resting comfortably. She notes no severe pain involving the right foot. She denies any fevers or chills at this time. Objective - Vital Signs Vital signs: Vital Signs Temp 98.0 F 09/12/18 07:00 Pulse 77 09/12/18 07:00 Resp 16 09/12/18 07:00 BP 138/92 09/12/18 07:00 Pulse Ox 98 09/12/18 07:00 Intake & Output 09/11/18 09/12/18 09/12/18 18:59 06:59 18:59 Intake Total 750 Output Total 3 Balance 747 Intake: IV 350 Oral 400 Output: Estimated Blood Loss 3 Other: Voiding Method Bedside Commode # Voids 2 2 - Exam Right lower extremity: Initial postop bandages in good position and condition. No streaking erythema noted the proximal leg. She is able to wiggle the toes minimal difficulty, sensation to light touch both proximal distal to the bandage are intact. Calf is soft, no tenderness with palpation. Skin is warm to touch. - Labs CBC & Chem 7: 09/11/18 07:00 09/12/18 07:13 Labs: Abnormal Lab Results - Last 24 Hours (Table) 09/11/18 09/11/18 09/11/18 Range/Units 12:16 16:34 20:41 BUN (7-17) mg/dL Glucose (74-99) mg/dL POC Glucose (mg/dL) 216 H 267 H 367 H (75-99) mg/dL 09/12/18 09/12/18 Range/Units 07:07 07:13 BUN 18 H (7-17) mg/dL Glucose 212 H (74-99) mg/dL POC Glucose (mg/dL) 190 H (75-99) mg/dL Microbiology - Last 24 Hours (Table) 09/11/18 10:07 Gram Stain - Preliminary Foot - Right Wound Culture - Preliminary 09/07/18 22:00 Blood Culture - Preliminary Blood No Growth after 96 hours 09/11/18 10:07 Anaerobic Culture - Preliminary Foot - Right Assessment and Plan Plan: Assessment: Postop day 1 status post I&D right right foot Plan: We'll leave current bandage in place, okay to remove if infectious disease wants to examine Ice and elevate Weight-bear as tolerated, recommend more weightbearing through the heel of the foot versus toes With there being no surgical evidence of abscess, there is an elevated clinical suspicion for osteomyelitis. Patient would likely benefit from long-term IV antibiotic treatment Other medical support assistant recommendations Time with Patient: Less than 30
[2018-09-12 12:23] LABS: Glucose,Whole Blood 273 mg/dL (75-99)
--- NOTE | 2018-09-12 12:43 | P.PN ---
Subjective 47-year-old female was admitted secondary to wound infection of the left fifth metatarsal area. Patient underwent incision and drainage patient is a significant swelling in that area and the patient is on ceftriaxone as the possible organism was believed to be Still oxytoca from her previous cultures. Patient is comparing of some lightheadedness patient blood pressure is a low. Patient does have history of congestive heart failure apparently ejection fraction. which did improve I do not have any echocardiogram available. For her congestive heart failure patient is on lisinopril as well as Lasix both are contributing to her shortness of breath will gently hydrate her and continue with Rocephin and monitor for any volume overload. We'll also obtain a chest x- ray to make sure patient doesn't have any pulmonary edema clinically patient does not have any elevated JVD and crackles on lung exam. 09/12/2018 Patient's dizziness resolved, patient will be resumed on Lasix but the IV fluids will be discontinued her ejection fraction is unknown at this time patient is fairly euvolemic at this time. Arthritic surgery believes there may be an exposed bone and osteomyelitis because of which patient may end up needing IV antibiotics will discuss with infectious disease as well if needed patient will be started on PICC line and will be discharged tomorrow. Constitutional: Denied any fatigue denied any fever. Cardio vascular: denied any chest pain, palpitations Gastrointestinal denied any nausea vomiting Pulmonary: Denied any shortness of breath cough Neurologic denied any new focal deficits All inpatient medications were reviewed and appropriate changes in these medications as dictated in the interval history and assessment and plan. Objective - Vital Signs Vital signs: Vital Signs Temp 98.0 F 09/12/18 07:00 Pulse 77 09/12/18 07:00 Resp 16 09/12/18 07:00 BP 138/92 09/12/18 07:00 Pulse Ox 98 09/12/18 07:00 Intake & Output 09/11/18 09/12/18 09/12/18 18:59 06:59 18:59 Intake Total 750 Output Total 3 Balance 747 Intake: IV 350 Oral 400 Output: Estimated Blood Loss 3 Other: Voiding Method Bedside Commode # Voids 2 2 - Exam PHYSICAL EXAMINATION: GENERAL: The patient is alert and oriented x3, not in any acute distress. Well developed, well nourished. HEENT: Pupils are round and equally reacting to light. EOMI. No scleral icterus. No conjunctival pallor. Normocephalic, atraumatic. No pharyngeal erythema. No thyromegaly. CARDIOVASCULAR: S1 and S2 present. No murmurs, rubs, or gallops. PULMONARY: Chest is clear to auscultation, no wheezing or crackles. ABDOMEN: Soft, nontender, nondistended, normoactive bowel sounds. No palpable organomegaly. MUSCULOSKELETAL: No joint swelling or deformity. EXTREMITIES: No cyanosis, clubbing, or pedal edema. Left foot metatarsal dorsal ulcer which was post surgically Paxil does have edema around that area and some redness. NEUROLOGICAL: Gross neurological examination did not reveal any focal deficits. SKIN: No rashes. - Labs CBC & Chem 7: 09/11/18 07:00 09/12/18 07:13 Labs: Abnormal Lab Results - Last 24 Hours (Table) 09/11/18 09/11/18 09/12/18 Range/Units 16:34 20:41 07:07 BUN (7-17) mg/dL Glucose (74-99) mg/dL POC Glucose (mg/dL) 267 H 367 H 190 H (75-99) mg/dL 09/12/18 09/12/18 Range/Units 07:13 11:57 BUN 18 H (7-17) mg/dL Glucose 212 H (74-99) mg/dL POC Glucose (mg/dL) 273 H (75-99) mg/dL Microbiology - Last 24 Hours (Table) 09/11/18 10:07 Gram Stain - Preliminary Foot - Right Wound Culture - Preliminary 09/07/18 22:00 Blood Culture - Preliminary Blood No Growth after 96 hours 09/11/18 10:07 Anaerobic Culture - Preliminary Foot - Right Assessment and Plan Plan: - Cellular the right foot with the infected wound on the dorsum of the left fourth metatarsal area failed outpatient treatment. Cultures positive for Klebsiella, continue with Rocephin, there was a possibility for possible pneumonitis as per orthopedic surgery who did the debridement. Patient many long-term antibiotics and the scenario patient will receive a PICC line tomorrow possibility of discharge tomorrow -Dizziness secondary to hypotension which is related to above-mentioned medications further management as mentioned above -Congestive heart failure: Ejection fraction is presently unknown, dizziness improved IV fluids were discontinued hold off on Lasix - Hyperlipidemia - Hypertension -Type 2 diabetes mellitus and diabetic foot ulcers blood sugars are not well- controlled, will will add Januvia as prevention prefer not to be on insulin. Patient will need pharmacologic GI and DVT prophylaxis
[2018-09-12] MEDS: LINAGLIPTIN 5 MG TABLET PO SCH (12:50)
[2018-09-12 17:43] LABS: Glucose,Whole Blood 160 mg/dL (75-99)
[2018-09-12] MEDS ORDERED: ALPRAZolam 0.25 MG TAB PO STA (19:35)
[2018-09-12] MEDS: ATORVASTATIN 10 MG TAB PO SCH (20:00)
[2018-09-12 20:08] LABS: Glucose,Whole Blood 224 mg/dL (75-99)
[2018-09-13] MEDS: HEPARIN SODIUM,PORCINE 5,000 UNIT/ML 1 ML VIAL SQ SCH ×3 (00:50→15:05)
[2018-09-13 07:48] LABS: Glucose,Whole Blood 201 mg/dL (75-99)
[2018-09-13] MEDS: CYCLOBENZAPRINE 10 MG TAB PO SCH (07:50)
[2018-09-13] MEDS: metFORMIN 500 MG TAB PO SCH (07:50)
[2018-09-13] MEDS: LINAGLIPTIN 5 MG TABLET PO SCH (07:50)
[2018-09-13] MEDS: FAMOTIDINE 20 MG TAB PO SCH (07:50)
[2018-09-13] MEDS: MECLIZINE 25 MG TAB PO SCH ×2 (07:50→15:04)
[2018-09-13] MEDS: MULTIVITAMINS, THERA 1 EACH TAB PO SCH (07:50)
[2018-09-13] MEDS: ASPIRIN 81 MG PO SCH (07:50)
[2018-09-13] MEDS: glipiZIDE 10 MG TAB PO SCH (07:50)
[2018-09-13] MEDS: INSULIN ASPART (NovoLOG) 100 UNIT/ML VIAL SQ SCH ×2 (07:51→12:26)
[2018-09-13 08:29] VITALS: RESP 16
[2018-09-13 11:25] LABS: Glucose,Whole Blood 253 mg/dL (75-99)
--- NOTE | 2018-09-13 13:15 | P.PN ---
Subjective Patient is postoperative for I&D of right foot per Dr. Eufemia Real. Awaiting PICC line for home antibiotics Objective - Vital Signs Vital signs: Vital Signs Temp 98.2 F 09/13/18 07:47 Pulse 79 09/13/18 07:47 Resp 16 09/13/18 07:47 BP 117/76 09/13/18 07:47 Pulse Ox 100 09/13/18 07:47 Intake & Output 09/12/18 09/13/18 09/13/18 18:59 06:59 18:59 Other: Voiding Method Bedside Commode # Voids 3 2 - Constitutional General appearance: Present: mild distress - EENT Eyes: Present: PERRLA Ears: bilateral: normal - Neck Neck: Present: normal ROM - Respiratory Respiratory: bilateral: CTA - Cardiovascular Rhythm: regular - Gastrointestinal General gastrointestinal: Present: soft - Integumentary Integumentary: Present: normal - Neurologic Neurologic: Present: CNII-XII intact - Musculoskeletal Musculoskeletal Comment(s): Pressure dressing to right foot Musculoskeletal: Present: gait normal - Psychiatric Psychiatric: Present: A&O x's 3, appropriate affect, intact judgment & insight - Labs CBC & Chem 7: 09/11/18 07:00 09/12/18 07:13 Labs: Abnormal Lab Results - Last 24 Hours (Table) 09/12/18 09/12/18 09/13/18 Range/Units 17:06 19:59 07:15 POC Glucose (mg/dL) 160 H 224 H 201 H (75-99) mg/dL 09/13/18 Range/Units 11:22 POC Glucose (mg/dL) 253 H (75-99) mg/dL Microbiology - Last 24 Hours (Table) 09/11/18 10:07 Gram Stain - Preliminary Foot - Right Wound Culture - Preliminary Group D Enterococcus 09/07/18 22:00 Blood Culture - Preliminary Blood No Growth after 120 hours Assessment and Plan Plan: Assessment Cellulitis of diabetic ulcer right foot failed outpatient therapy Osteomyelitis Post I&D right foot Heart failure stable Hyperlipidemia Hypertension Osteoarthritis Diabetes type 2 Plan Continue consultation with orthopedics and infectious disease Hopeful discharge soon on IV antibiotics with PICC line
[2018-09-13 14:56] VITALS: BP 125/83; PULSE 89; TEMP 98.5
[2018-09-13] MEDS: IBUPROFEN 400 MG TAB PO PRN (15:05)
--- NOTE | 2018-09-13 15:32 | P.DS ---
Providers Date of admission: 09/08/18 00:04 Expected date of discharge: 09/13/18 Attending physician: Juanpablo Dejesus Consults: 09/07/18 23:51 Consult Physician Stat Consulting Provider: Broderick Gavin Consult Reason/Comments: cellulitis R foot, diabetic ulcer, poss osteomyelitis Do you want consulting provider notified?: Yes Consult Physician Stat Consulting Provider: Talha Gonsalez Consult Reason/Comments: cellulitis, diabetic foot ulcer, poss osteomyelitis Do you want consulting provider notified?: Yes 09/09/18 17:51 Consult Physician Stat Consulting Provider: Sharad Negron Consult Reason/Comments: I & D of right foot wound per Dr Gavin. Do you want consulting provider notified?: Yes Primary care physician: Juanpablo Dejesus Hospital Course: 47-year-old female was admitted for failed outpatient from right foot osteomyelitis chronic of foot ulcer for one year. Patient has been seen in the wound care center with Dr. Gavin Has also been seen by podiatry Dr. Gonsalez. Patient was treated with antibiotics and abraded with I&D by Dr. russell negron. Patient has been cleared for discharge per infectious disease Assessment cellulitis with osteomyelitis right foot failed outpatient diabetes type II heart failure stable hyperlipidemia hypertension osteoarthritis Plan home meds with augmentin follow up with family physician Dr. Juanpablo Dejesus and Dr. Gavin Patient Condition at Discharge: Fair Plan - Discharge Summary New Discharge Prescriptions: New Amoxic-Pot Clav 875-125Mg [Augmentin 875-125] 1 tab PO Q12HR #14 tablet Multivitamins, Thera [Multivitamin (formulary)] 1 each PO 1200 tab Acetaminophen Tab [Tylenol] 650 mg PO Q6HR PRN tab PRN Reason: Mild Pain Or Fever > 100.5 Continue Spironolactone [Aldactone] 25 mg PO DAILY Meloxicam 15 mg PO DAILY Cyclobenzaprine [Flexeril] 10 mg PO BID Aspirin 81 mg PO DAILY glipiZIDE [Glucotrol] 10 mg PO AC-BID Lisinopril 2.5 mg PO DAILY Multivitamins, Thera [Multivitamin (formulary)] 1 tab PO DAILY Lovastatin [Mevacor] 10 mg PO HS metFORMIN HCL ER [Glucophage Xr] 1,000 mg PO BID Meclizine [Antivert] 25 mg PO TID Empagliflozin [Jardiance] 25 mg PO DAILY Discontinued Furosemide [Lasix] 20 mg PO DAILY Cephalexin [Keflex] 500 mg PO TID glyBURIDE [Diabeta] 10 mg PO BID Discharge Medication List Aspirin 81 mg PO DAILY 06/22/14 [History] Cyclobenzaprine [Flexeril] 10 mg PO BID 06/22/14 [History] Meloxicam 15 mg PO DAILY 06/22/14 [History] Spironolactone [Aldactone] 25 mg PO DAILY 06/22/14 [History] glipiZIDE [Glucotrol] 10 mg PO AC-BID 06/22/14 [History] Lisinopril 2.5 mg PO DAILY 02/12/15 [History] Multivitamins, Thera [Multivitamin (formulary)] 1 tab PO DAILY 03/08/15 [History] Lovastatin [Mevacor] 10 mg PO HS 06/14/18 [History] Empagliflozin [Jardiance] 25 mg PO DAILY 09/07/18 [History] Meclizine [Antivert] 25 mg PO TID 09/07/18 [History] metFORMIN HCL ER [Glucophage Xr] 1,000 mg PO BID 09/07/18 [History] Acetaminophen Tab [Tylenol] 650 mg PO Q6HR PRN tab 09/13/18 [Rx] Amoxic-Pot Clav 875-125Mg [Augmentin 875-125] 1 tab PO Q12HR #14 tablet 09/13/18 [Rx] Multivitamins, Thera [Multivitamin (formulary)] 1 each PO 1200 tab 09/13/18 [Rx] Follow up Appointment(s)/Referral(s): Juanpablo Dejesus MD [Primary Care Provider] - 1-2 days Sharad Negron DO [Doctor of Osteopathic Medicine] - 1 Week Patient Instructions/Handouts: Cellulitis (DC), Incision and Drainage (DC) Activity/Diet/Wound Care/Special Instructions: Glucometer ordered through [employer] #[phone] [id number] and roll gauze to right foot daily.
[2018-09-13 18:45] LABS: Hemoglobin A1C 10.6 % (4.0-6.0)
--- NOTE | 2018-09-13 21:41 | P.PN ---
Subjective Progress Note Date: 09/13/18 47-year-old woman who has a complex history regarding the difficulty with her left foot. She had been seen in the wound healing Center with Dr. Mclean and I did have the pleasure of seeing her also. When she was seen last month workup was initiated and MRI failed to reveal evidence of osteomyelitis of the abnormality to the lateral fifth metatarsal area, but there was evidence of a fluid collection consistent with abscess. She was referred back to her wholesale account executive for incision and drainage. The patient relates that needle aspiration occurred culture was sent to the laboratory and now has developed an extensive cellulitis of the foot with erythema and swelling pain and tenderness. She was admitted antibiotic therapy has been initiated. She relates completed course feels just slightly better. Pain is well controlled. 09/10/2018 patient is feeling somewhat better. She's been seen by orthopedics and there is plans for incision and drainage soon. 2018 patient is definitely feeling better. The foot was incised and drained and now there is a dressing in place in the site has been sutured closed with one suture to allow drainage. Surgical note is reviewed no evidence of any deep infection there was no bony involvement in no debridement of bone occurred Objective - Vital Signs Vital signs: Vital Signs Temp 98.5 F 09/13/18 14:24 Pulse 89 09/13/18 14:24 Resp 16 09/13/18 14:24 BP 125/83 09/13/18 14:24 Pulse Ox 99 09/13/18 14:24 Intake & Output 09/13/18 09/13/18 09/14/18 06:59 18:59 06:59 Intake Total 540 Output Total 700 Balance -160 Intake: Oral 540 Output: Urine 700 Other: Voiding Method Bedside Commode # Voids 2 - Exam 47-year-old woman who was somewhat uncomfortable due to the erythema pain and swelling to the left foot. HEENT: Anicteric conjunctiva are pink and moist nasal mucosa grossly intact without significant lesions, there is no thrush. Neck: The neck is supple without significant lymphadenopathy or thyromegaly. Lungs: Good bilateral air entry without significant crackles or wheezing. There is no significant bronchial sounds. There is no egophony or dullness. Heart: Regular rate and rhythm with an audible S1-S2, no S3 no S4. There is no significant murmur click or rub, PMI was nondisplaced. Abdomen: Positive bowel sounds soft and nontender without palpable masses or organomegaly. There was no guarding or rebound. Extremities: The upper extremities have excellent pulses they are symmetric, no significant petechiae or telangiectasia. No splinter hemorrhages were noted. Right foot has no acute abnormality is. Lower extremities shows evidence of the abnormality to the left lateral fifth metatarsal head area. The site is now had incision and drainage. The sutures in place. Scant amount of servicing this drainage. Swelling to the foot is much improved. It is not very tender to manipulation. Neuro: Awake alert oriented to person place and time. There are no acute new gross focal sensory motor deficits. - Labs CBC & Chem 7: 09/11/18 07:00 09/12/18 07:13 Labs: Abnormal Lab Results - Last 24 Hours (Table) 09/12/18 09/13/18 09/13/18 Range/Units 07:13 07:15 11:22 POC Glucose (mg/dL) 201 H 253 H (75-99) mg/dL Hemoglobin A1c 10.6 H (4.0-6.0) % Microbiology - Last 24 Hours (Table) 09/11/18 10:07 Gram Stain - Preliminary Foot - Right Wound Culture - Preliminary Group D Enterococcus 09/07/18 22:00 Blood Culture - Preliminary Blood No Growth after 120 hours Laboratory Results WBC 10.2 k/uL (3.8-10.6) 09/11/18 07:00 RBC 4.83 m/uL (3.80-5.40) 09/11/18 07:00 Hgb 12.1 gm/dL (11.4-16.0) 09/11/18 07:00 Hct 39.0 % (34.0-46.0) 09/11/18 07:00 MCV 80.8 fL (80.0-100.0) 09/11/18 07:00 MCH 25.1 pg (25.0-35.0) 09/11/18 07:00 MCHC 31.1 g/dL (31.0-37.0) 09/11/18 07:00 RDW 14.6 % (11.5-15.5) 09/11/18 07:00 Plt Count 422 k/uL (150-450) 09/11/18 07:00 Neutrophils % 66 % 09/07/18 22:00 Lymphocytes % 21 % 09/07/18 22:00 Monocytes % 7 % 09/07/18 22:00 Eosinophils % 3 % 09/07/18 22:00 Basophils % 1 % 09/07/18 22:00 Neutrophils # 5.8 k/uL (1.3-7.7) 09/07/18 22:00 Lymphocytes # 1.8 k/uL (1.0-4.8) 09/07/18 22:00 Monocytes # 0.6 k/uL (0-1.0) 09/07/18 22:00 Eosinophils # 0.2 k/uL (0-0.7) 09/07/18 22:00 Basophils # 0.1 k/uL (0-0.2) 09/07/18 22:00 Sodium 139 mmol/L (137-145) 09/12/18 07:13 Potassium 4.6 mmol/L (3.5-5.1) 09/12/18 07:13 Chloride 104 mmol/L (98-107) 09/12/18 07:13 Carbon Dioxide 28 mmol/L (22-30) 09/12/18 07:13 Anion Gap 7 mmol/L 09/12/18 07:13 BUN 18 mg/dL (7-17) H 09/12/18 07:13 Creatinine 0.57 mg/dL (0.52-1.04) 09/12/18 07:13 Est GFR (CKD-EPI)AfAm >90 (>60 ml/min/1.73 sqM) 09/12/18 07:13 Est GFR (CKD-EPI)NonAf >90 (>60 ml/min/1.73 sqM) 09/12/18 07:13 Glucose 212 mg/dL (74-99) H 09/12/18 07:13 POC Glucose (mg/dL) 253 mg/dL (75-99) H 09/13/18 11:22 POC Glu Director Of Assisted Living Emilia [place] 09/13/18 11:[address] Glu mg/dL 258 09/12/18 07:13 Hemoglobin A1c 10.6 % (4.0-6.0) H 09/12/18 07:13 Plasma Lactic Acid Chai 1.8 mmol/L (0.7-2.0) 09/07/18 22:00 Calcium 8.8 mg/dL (8.4-10.2) 09/12/18 07:13 Total Bilirubin 0.3 mg/dL (0.2-1.3) 09/07/18 22:00 AST 19 U/L (14-36) 09/07/18 22:00 ALT 44 U/L (9-52) 09/07/18 22:00 Alkaline Phosphatase 98 U/L (38-126) 09/07/18 22:00 Total Protein 6.6 g/dL (6.3-8.2) 09/07/18 22:00 Albumin 3.7 g/dL (3.5-5.0) 09/07/18 22:00 Urine Color Light Yellow 09/07/18 22:00 Urine Appearance Clear (Clear) 09/07/18 22:00 Urine pH 5.5 (5.0-8.0) 09/07/18 22:00 Ur Specific Marcellus 1.010 (1.001-1.035) 09/07/18 22:00 Urine Protein Negative (Negative) 09/07/18 22:00 Urine Glucose (UA) 4+ (Negative) H 09/07/18 22:00 Urine Ketones Negative (Negative) 09/07/18 22:00 Urine Blood Negative (Negative) 09/07/18 22:00 Urine Nitrite Negative (Negative) 09/07/18 22:00 Urine Bilirubin Negative (Negative) 09/07/18 22:00 Urine Urobilinogen <2.0 mg/dL (<2.0) 09/07/18 22:00 Ur Leukocyte Esterase Moderate (Negative) H 09/07/18 22:00 Urine RBC 1 /hpf (0-5) 09/07/18 22:00 Urine WBC 7 /hpf (0-5) H 09/07/18 22:00 Ur Squamous Epith Cells 2 /hpf (0-4) 09/07/18 22:00 Urine Mucus Rare /hpf (None) H 09/07/18 22:00 Urine HCG, Qual Not Detected (Not Detectd) 09/07/18 22:00 Microbiology Entire Visit 09/11/18 10:07 Foot - Right Gram Stain - Preliminary 09/11/18 10:07 Foot - Right Wound Culture - Preliminary Group D Enterococcus 09/07/18 22:00 Blood Blood Culture - Preliminary No Growth after 120 hours 09/11/18 10:07 Foot - Right Anaerobic Culture - Preliminary 09/07/18 22:00 Urine,Voided Urine Culture - Final Assessment and Plan (1) Cellulitis Status: Acute Code(s): L03.90 - CELLULITIS, UNSPECIFIED SNOMED Code(s): 389294058 (2) Abscess of right foot Narrative/Plan: 47-year-old woman who has a history of diabetes and a nonhealing area to the lateral aspect of her foot at the fifth metatarsal head had been evaluated the wound healing Center. Because of this imaging studies were performed and no osteomyelitis was noted. However there is evidence of a small abscess in the tissue. The patient was seen by her wholesale account executive aspiration was performed. However the patient is not developed an extensive cellulitis to this area. The case is discussed with the primary care team we've asked for a foot and ankle orthopedic surgical consult for the incision and drainage and debridement of this area to allow it to heal more fully. She'll need to get into some kind of offloading device after the surgery. For antibiotic therapy Rocephin 2 g a day are given for the Klebsiella oxytoca that has been isolated. Given that there is no osteomyelitis when she is improved should be able utilize oral antibiotic therapy at discharge. Pain control appears to be adequate. Multivitamin is added. Patient believes she is up-to-date with her tetanus. 09/10/2018 patient feels a little better today. She has been seen by orthopedic surgery and is planned for incision and drainage of the site tomorrow. Likely be loosely closed in a row. Plans for antibiotic therapy based on the findings at the time of surgery. Recent outpatient MRI did not reveal evidence of underlying osteomyelitis but surgery will further help define this issue. Pain control is adequate. 09/13/2018 patient is doing well postoperative. Enterococcus is only been isolated at this point in time. Per culture with Klebsiella. Both are susceptible to Augmentin and constantly she will discharged home on Augmentin 875 mg orally twice per day for 7 days with follow-up with the orthopedic surgeon later this week. Any further concerns she can phone the office. Status: Acute Code(s): L02.611 - CUTANEOUS ABSCESS OF RIGHT FOOT SNOMED Code(s): 710484503
--- NOTE | 2018-09-14 09:34 | CDI ---
Documentation Clarification Form Date: 09/14/2018 7:41:35 AM From: Niki Meraz Phone: If you have a question , please contact Lisa Corrigan Bookstore Clerk at [phone] 8am to 5pm. Admit Date: 09/08/2018 12:04:00 AM Patient Name: Karla Haro Visit Number: [id number] Discharge Date: 09/13/2018 4:43:00 PM ATTENTION: The Clinical Documentation Specialists (CDI) and [facility] Coding Staff appreciate your assistance in clarifying documentation. Please respond to the clarification below the line at the bottom and electronically sign. The CDI & [facility] Coding staff will review the response and follow-up if needed. Please note: Queries are made part of the Legal Health Record. If you have any questions, please contact the author of this message via ITS. Dr. Juanpablo Dejesus Conflicting documentation has been found in the medical record: Infect Disease Progress note documents imaging studies performed- no osteomyelitis. Dischrg Summary documents osteomyelitis. Please clarify if patient had osteomyelitis or was it ruled out. History/Risk Factors: chronic DFU, cellulitis, nonhealing Clinical Indicators: cytology Klebsiella and Group D enterococcus wound rt. foot Treatment: Rocephin and I and D and debridement In your opinion, what is the most clinically appropriate diagnosis for this patient? Osteomyelitis Osteomyelitis due to DFU Osteomyelitis ruled out Other explanation of clinical findings Unable to determine (no explanation for clinical findings) history of osteomyelitis in past currently ruled out MTDD
--- NOTE | 2018-09-15 17:11 | P.PN ---
Progress Note - Text addendum per orthopedic clinical suspicion of osteomyelitis
== END 2018-09-13 16:43 | disposition home or self-care (01) | DRG 638 ==
LOC: EC 20:41 → 4SSUR 09-08 00:04
PROVIDERS: ADMIT Family Medicine; ATTEND Family Medicine
PROC: 0HBMXZZ Excision of Right Foot Skin, External Approach (ICD-10-PCS; 2018-09-11)
PROC: 0J9Q0ZX Drainage of Right Foot Subcutaneous Tissue and Fascia, Open Approach, Diagnostic (ICD-10-PCS; principal; 2018-09-11 09:20)
DX: E11.69 Type 2 diabetes mellitus with other specified complication (principal); M86.9 Osteomyelitis, unspecified; L03.115 Cellulitis of right lower limb; E11.628 Type 2 diabetes mellitus with other skin complications; B95.2 Enterococcus as the cause of diseases classified elsewhere; B96.1 Klebsiella pneumoniae [K. pneumoniae] as the cause of diseases classified elsewhere; Z79.84 Long term (current) use of oral hypoglycemic drugs; E11.621 Type 2 diabetes mellitus with foot ulcer; E78.5 Hyperlipidemia, unspecified; I11.0 Hypertensive heart disease with heart failure; I50.9 Heart failure, unspecified; M19.90 Unspecified osteoarthritis, unspecified site; Z79.82 Long term (current) use of aspirin; Z79.899 Other long term (current) drug therapy; Z86.14 Personal history of Methicillin resistant Staphylococcus aureus infection; Z79.2 Long term (current) use of antibiotics; Z90.49 Acquired absence of other specified parts of digestive tract; Z80.0 Family history of malignant neoplasm of digestive organs
CPT/HCPCS: 36415; 71045; 80048; 80053; 81001; 81025; 83036; 83605; 85025; 85027; 87040; 87070; 87075; 87077; 87086; 87186; 87205; 96365; 96375; 99285

== ENCOUNTER 2019-07-27 16:31 | Observation (INO) | payer OTHER ==
[2019-07-27 17:40] LABS: Basophils # (A) 0.1 k/uL (0-0.2); Basophils % (A) 1 %; Eosinophils # (A) 0.1 k/uL (0-0.7); Eosinophils % (A) 1 %; HCT 46.5 % (34.0-46.0); HGB 14.9 gm/dL (11.4-16.0); Lymphocytes # (A) 1.1 k/uL (1.0-4.8); Lymphocytes % (A) 12 %; MCH 25.7 pg (25.0-35.0); MCV 80.2 fL (80.0-100.0); Mean Platelet Volume 8.1; Monocytes # (A) 0.6 k/uL (0-1.0); Monocytes % (A) 7 %; Neutrophils # (A) 6.5 k/uL (1.3-7.7); Neutrophils % (A) 77 %; Platelet Count 235 k/uL (150-450); RDW 13.6 % (11.5-15.5); WBC 8.5 k/uL (3.8-10.6)
[2019-07-27 17:47] LABS: INR 0.9 (<1.2); Partial Thromboplastin Time 22.3 sec (22.0-30.0); Prothrombin Time 9.9 sec (9.0-12.0)
[2019-07-27 17:51] LABS: ALT 20 U/L (4-34); AST 26 U/L (14-36); African American GFR (CKD) >90 (>60 ml/min/1.73 sqM); Albumin 4.4 g/dL (3.5-5.0); Alkaline Phosphatase 115 U/L (38-126); Anion Gap 11 mmol/L; Blood Urea Nitrogen 18 mg/dL (7-17); Calcium 9.6 mg/dL (8.4-10.2); Carbon Dioxide 26 mmol/L (22-30); Chloride 96 mmol/L (98-107); Glucose 357 mg/dL (74-99); Non-African American GFR(CKD) >90 (>60 ml/min/1.73 sqM); Potassium 5.2 mmol/L (3.5-5.1); Sodium 133 mmol/L (137-145); Total Bilirubin 0.4 mg/dL (0.2-1.3); Total Protein 7.6 g/dL (6.3-8.2)
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
--- NOTE | 2019-07-27 19:14 | XR ---
EXAMINATION TYPE: XR chest 2V DATE OF EXAM: 07/27/2019 COMPARISON: Prior chest x-ray 09/11/2018 HISTORY: Chest pain, fever and chills TECHNIQUE: Frontal and lateral views of the chest are obtained. FINDINGS: Patient is rotated. There is no focal air space opacity, pleural effusion, or pneumothorax seen. The cardiac silhouette size is within normal limits. The osseous structures are intact. IMPRESSION: No acute cardiopulmonary process.
[2019-07-27] MEDS ORDERED: ACETAMINOPHEN TAB 325 MG TAB PO STA (19:22)
[2019-07-27] MEDS ORDERED: NITROGLYCERIN SL TABS 0.4 MG TAB SUBLINGUAL PRN (20:26)
[2019-07-27] MEDS: OSELTAMIVIR 75 MG CAP PO SCH (22:46)
[2019-07-27 23:28] LABS: Glucose,Whole Blood 351 mg/dL (75-99)
[2019-07-27] MEDS: INSULIN ASPART (NovoLOG) 100 UNIT/ML VIAL SQ SCH (23:51)
[2019-07-28] MEDS ORDERED: ACETAMINOPHEN TAB 325 MG TAB PO STA (04:46)
[2019-07-28 06:37] LABS: Cholesterol 126 mg/dL (<200); HDL Cholesterol 47 mg/dL (40-60); LDL Cholesterol,Calculated 48 mg/dL (0-99); Triglycerides 156 mg/dL (<150)
[2019-07-28] MEDS ORDERED: INSULIN ASPART (NovoLOG) 100 UNIT/ML VIAL SQ SCH (07:30)
[2019-07-28 07:42] LABS: Glucose,Whole Blood 276 mg/dL (75-99)
[2019-07-28] MEDS ORDERED: ASPIRIN 325 MG TAB PO SCH (09:00)
[2019-07-28] MEDS: OSELTAMIVIR 75 MG CAP PO SCH ×2 (09:12→21:28)
[2019-07-28] MEDS ORDERED: NAPROXEN 250 MG TAB PO PRN (10:47)
[2019-07-28] MEDS ORDERED: ACETAMINOPHEN TAB 325 MG TAB PO PRN (10:49)
[2019-07-28] MEDS: INSULIN ASPART (NovoLOG) 100 UNIT/ML VIAL SQ SCH ×4 (10:51→21:28)
--- NOTE | 2019-07-28 11:01 | ECHOF ---
Referral Reason:cp MEASUREMENTS -------- HEIGHT: 160.0 cm WEIGHT: 75.7 kg BP: 134/77 RVIDd: 3.1 cm (< 3.3) IVSd: 1.3 cm (0.6 - 1.1) LVIDd: 4.6 cm (3.9 - 5.3) LVPWd: 1.2 cm (0.6 - 1.1) IVSs: 1.6 cm LVIDs: 4.1 cm LVPWs: 1.8 cm LA Diam: 3.4 cm (2.7 - 3.8) LAESV Index (A-L): 16.44 ml/m Ao Diam: 3.2 cm (2.0 - 3.7) AV Cusp: 2.2 cm (1.5 - 2.6) MV EXCURSION: 15.618 mm (> 18.000) MV EF SLOPE: 53 mm/s (70 - 150) EPSS: 1.8 cm MV E Barry: 0.46 m/s MV DecT: 224 ms MV A Barry: 0.55 m/s MV E/A Ratio: 0.83 RAP: 5.00 mmHg RVSP: 27.65 mmHg TAPSE: 18.05 mm FINDINGS -------- Sinus rhythm. This was a technically good study. The left ventricular size is normal. There is mild concentric left ventricular hypertrophy. There is moderate global hypokinesis of LV . Overall left ventricular systolic function is severely impa ired with, an EF between 25 - 30 %. The right ventricle is normal in size. Normal LA size by volume 22+/-6 ml/m2. The right atrium is normal in size. Interatrial and interventricular septum intact. The aortic valve is trileaflet and appears structurally normal. There is trace to mild mitral regurgitation. Mild tricuspid regurgitation present. Right ventricular systolic pressure is normal at < 35 mmHg. Trace/mild (physiologic) pulmonic regurgitation. The aortic root size is normal. Normal inferior vena cava with normal inspiratory collapse consistent with estimated right atrial pre ssure of 5 mmHg. There is no pericardial effusion. CONCLUSIONS -------- 1. Sinus rhythm. 2. This was a technically good study. 3. The left ventricular size is normal. 4. There is mild concentric left ventricular hypertrophy. 5. There is moderate global hypokinesis of LV . 6. Overall left ventricular systolic function is severely impaired with, an EF between 25 - 30 %. 7. The right ventricle is normal in size. 8. Normal LA size by volume 22+/-6 ml/m2. 9. The right atrium is normal in size. 10. Interatrial and interventricular septum intact. 11. The aortic valve is trileaflet and appears structurally normal. 12. There is trace to mild mitral regurgitation. 13. Mild tricuspid regurgitation present. 14. Right ventricular systolic pressure is normal at < 35 mmHg. 15. Trace/mild (physiologic) pulmonic regurgitation. 16. The aortic root size is normal. 17. Normal inferior vena cava with normal inspiratory collapse consistent with estimated right atrial pressure of 5 mmHg. 18. There is no pericardial effusion. DIE WELDER: Lauryn Valentino RDCS
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
[2019-07-28 11:41] LABS: Glucose,Whole Blood 419 mg/dL (75-99)
[2019-07-28] MEDS: buPROPion XL 150 MG TAB.ER.24H PO SCH (12:08)
[2019-07-28] MEDS: SPIRONOLACTONE 25 MG TAB PO SCH (12:08)
[2019-07-28] MEDS: FUROSEMIDE 20 MG TAB PO SCH (12:08)
[2019-07-28] MEDS: LISINOPRIL 2.5 MG TAB PO SCH (12:08)
[2019-07-28] MEDS: REPAGLINIDE 1 MG TAB PO SCH ×2 (12:08→17:20)
[2019-07-28] MEDS: METOPROLOL TARTRATE 25 MG TAB PO SCH ×2 (13:33→21:27)
[2019-07-28 16:47] LABS: Glucose,Whole Blood 275 mg/dL (75-99)
[2019-07-28 20:13] LABS: Glucose,Whole Blood 365 mg/dL (75-99)
[2019-07-28] MEDS ORDERED: ATORVASTATIN 40 MG TAB PO SCH (21:00)
[2019-07-28] MEDS ORDERED: INSULIN DETEMIR (LEVEMIR) 100 UNIT/ML SYR SQ SCH (21:00)
[2019-07-28] MEDS ORDERED: MELATONIN 5 MG TABLET PO PRN (21:07)
[2019-07-28] MEDS: metFORMIN 500 MG TAB PO SCH (21:28)
[2019-07-28] MEDS: CYCLOBENZAPRINE 10 MG TAB PO SCH (21:28)
[2019-07-29 06:52] LABS: Glucose,Whole Blood 286 mg/dL (75-99)
[2019-07-29] MEDS: METOPROLOL TARTRATE 25 MG TAB PO SCH (07:37)
[2019-07-29] MEDS: SPIRONOLACTONE 25 MG TAB PO SCH (07:38)
[2019-07-29] MEDS: FUROSEMIDE 20 MG TAB PO SCH (07:38)
[2019-07-29] MEDS: buPROPion XL 150 MG TAB.ER.24H PO SCH (07:38)
[2019-07-29] MEDS: REPAGLINIDE 1 MG TAB PO SCH (07:38)
[2019-07-29] MEDS: OSELTAMIVIR 75 MG CAP PO SCH (07:38)
[2019-07-29] MEDS: LISINOPRIL 2.5 MG TAB PO SCH (07:39)
[2019-07-29] MEDS: metFORMIN 500 MG TAB PO SCH (07:39)
[2019-07-29] MEDS: CYCLOBENZAPRINE 10 MG TAB PO SCH (07:39)
[2019-07-29] MEDS: INSULIN ASPART (NovoLOG) 100 UNIT/ML VIAL SQ SCH (07:39)
[2019-07-29 08:12] VITALS: BP 99/69; PULSE 63; RESP 18; TEMP 98.3
[2019-07-29] MEDS ORDERED: ASPIRIN 81 MG PO SCH (09:00)
[2019-07-29] MEDS ORDERED: MULTIVITAMINS, THERA 1 EACH TAB PO SCH (09:00)
--- NOTE | 2019-07-29 12:30 | P.PN ---
Subjective This is a pleasant 48-year-old female past medical history significant for non-ischemic cardiomyopathy in the past with EF less than 20% that improved to 50% on repeat echo in the office in 2017, non-obstructive CAD, chronic systolic heart failure, pulmonary hypertension, diabetes mellitus, hypertension, dyslipidemia and chronic nicotine dependence. She underwent cardiac cathetereization 2014 revealing severe cardiomyopathy with ejection fraction 15- 20% with global hypokinesia and dilated LV. RCA angiographically normal, left main angiographically normal, circumflex normal with no evidence of obstructive disease, ramus normal, LAD and ostial region and in the range of 10-20% and a mid tubular lesion in the range of 50-60% FFR at that time at 0.81. She had followed in the office in the past with Dr. Manzano but has not been to the office since 2017. She is currently being treated for influenza A. Echocardiogram obtained on this admission revealed impaired LV systolic function with EF 25- 30%, moderate global LV hypokinesia mild TR and normal RA pressures. She is seen and examined sitting up in bed in no acute distress. She is complaining of ongoing shortness of breath, cough and significant body aches. Blood pressure 116/72 heart rate 63 afebrile and maintaining oxygen saturation on room air. Currently maintained on aspirin 81 mg daily, atorvastatin 40 mg daily, lasix 20 mg daily, lisinopril 2.5 mg daily, lopressor 25 mg BID and aldactone 25 mg daily. GENERAL: Well-appearing, well-nourished and in no acute distress. NECK: Supple without JVD or thyromegaly. LUNGS: Breath sounds clear to auscultation bilaterally. Respiration equal and unlabored. No wheezes, rales or rhonchi. HEART: Regular rate and rhythm without murmurs, rubs or gallops. S1 and S2 heard. EXTREMITIES: Normal range of motion, no edema. No clubbing or cyanosis. Peripheral pulses intact. ASSESSMENT Acute influenza A Chest pain, atypical. An acute coronary event has been ruled out. Non-ischemic cardiomyopathy Chronic systolic heart failure, currently euvolemic Hypertension Dyslipidemia Diabetes mellitus Chronic nicotine dependence PLAN Continue current medical regimen. Blood pressure is tolerating medications. Close follow up in the office recommended. If heart function does not improve she will be considered for an ICD. Follow up in the office with Dr. Manzano, can be discharge from a cardiac perspective. Nurse Practitioner note has been reviewed, I agree with a documented findings and plan of care. Patient was seen and examined. Objective - Vital Signs Vital signs: Vital Signs Temp 98.3 F 07/29/19 08:00 Pulse 63 07/29/19 08:00 Resp 18 07/29/19 08:00 BP 99/69 07/29/19 08:00 Pulse Ox 99 07/29/19 08:00 Intake & Output 07/28/19 07/29/19 07/29/19 18:59 06:59 18:59 Other: Voiding Method Toilet Toilet # Voids 4 1 - Labs CBC & Chem 7: 07/27/19 17:22 07/27/19 17:22 Labs: Abnormal Lab Results - Last 24 Hours (Table) 07/28/19 07/28/19 07/28/19 Range/Units 11:37 16:45 20:11 POC Glucose (mg/dL) 419 H 275 H 365 H (75-99) mg/dL 07/29/19 Range/Units 06:45 POC Glucose (mg/dL) 286 H (75-99) mg/dL
--- NOTE | 2019-07-30 10:36 | DS ---
DISCHARGE SUMMARY DATE OF SERVICE: 07/29/2019 FINAL DIAGNOSES: 1. Chest pain, possibly nonspecific musculoskeletal, myocardial function, ruled out. 2. Influenza positive. 3. Diabetes mellitus type 2. 4. Congestive heart failure with chronic systolic dysfunction ejection fraction 25-30 percent. 5. Hyperlipidemia. DISCHARGE DISPOSITION: The patient being discharged in stable condition. Cardiology cleared the patient for discharge. HISTORY OF PRESENT ILLNESS: This 48-year-old woman with past medical history of multiple medical problems being followed by Dr. Juanpablo Dejesus in the outpatient setting was admitted for chest pain, influenza A was positive, treated symptomatically. Cardiology saw the patient. Two-D echo with Doppler was done. Two-D echo showed ejection fraction about 25 to 30%. Recommended outpatient followup. On exam, vitals signs are stable. Cardiovascular: S1, S2. Abdomen soft. Nervous system: No focal deficits. DISCHARGE ADVICE AND MEDICATIONS: 1. Diet is cardiac. 2. Activity limited until followup. 3. Follow up with Dr. Dejesus in 2-3 days. 4. Follow up with Dr. Manzano as recommended. DISCHARGE MEDICATIONS: 1. Aldactone 25 mg p.o. daily. 2. Aleve 440 mg b.i.d. 3. Flexeril 10 mg p.o. p.r.n. 4. Keflex 500 mg q8h p.r.n. 5. Lantus 40 units subcu q.h.s. 6. Lasix 20 mg p.o. daily. 7. Lipitor 40 mg p.o. daily. 8. Lisinopril 2.5 mg daily. 9. Metformin 1000 mg p.o. b.i.d. 10.Multivitamins 1 p.o. daily. 11.Repaglinide 81 mg p.o. t.i.d. 12.Requip 0.5 mg q.h.s. 13.Wellbutrin XL 150 mg p.o. daily. 14.Lopressor 20 mg p.o. b.i.d. 15.Tamiflu p.o. b.i.d. for 5 days. Once again, the patient is being discharged in stable condition with guarded prognosis. MMODL / IJN: [id number] /
== END 2019-07-29 12:30 | disposition home or self-care (01) ==
LOC: EC 16:31 → 1SOBS 22:02
PROVIDERS: ADMIT Family Medicine; ATTEND Family Medicine
DX: R07.89 Other chest pain (principal); J10.1 Influenza due to other identified influenza virus with other respiratory manifestations; E11.9 Type 2 diabetes mellitus without complications; I50.22 Chronic systolic (congestive) heart failure; E78.5 Hyperlipidemia, unspecified; F17.210 Nicotine dependence, cigarettes, uncomplicated; I11.0 Hypertensive heart disease with heart failure; M19.90 Unspecified osteoarthritis, unspecified site; I25.10 Atherosclerotic heart disease of native coronary artery without angina pectoris; I42.8 Other cardiomyopathies; I27.20 Pulmonary hypertension, unspecified; I07.9 Rheumatic tricuspid valve disease, unspecified; E66.9 Obesity, unspecified; Z68.29 Body mass index [BMI] 29.0-29.9, adult; Z79.899 Other long term (current) drug therapy; Z79.4 Long term (current) use of insulin; Z79.1 Long term (current) use of non-steroidal anti-inflammatories (NSAID); Z87.19 Personal history of other diseases of the digestive system; Z86.14 Personal history of Methicillin resistant Staphylococcus aureus infection; Z90.49 Acquired absence of other specified parts of digestive tract; Z98.890 Other specified postprocedural states; Z89.421 Acquired absence of other right toe(s); Z79.82 Long term (current) use of aspirin; Z80.0 Family history of malignant neoplasm of digestive organs
CPT/HCPCS: 93005 ×2; 99285; 36415; 93306; 83880; 80061; 80053; 84484 ×2; 85025; 85610; 85730; 87502; 71046; G0378 ×3

== ENCOUNTER 2019-10-27 19:43 | Observation (INO) | payer OTHER ==
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
[2019-10-27 20:44] LABS: Basophils # (A) 0.1 k/uL (0-0.2); Basophils % (A) 1 %; Eosinophils # (A) 0.2 k/uL (0-0.7); Eosinophils % (A) 2 %; HCT 44.5 % (34.0-46.0); HGB 13.8 gm/dL (11.4-16.0); Lymphocytes % (A) 32 %; MCH 25.3 pg (25.0-35.0); MCV 81.6 fL (80.0-100.0); Monocytes # (A) 0.3 k/uL (0-1.0); Monocytes % (A) 5 %; Neutrophils # (A) 3.6 k/uL (1.3-7.7); Neutrophils % (A) 57 %; Platelet Count 198 k/uL (150-450); RBC 5.46 m/uL (3.80-5.40); RDW 13.6 % (11.5-15.5); WBC 6.3 k/uL (3.8-10.6)
[2019-10-27 20:57] LABS: ALT 19 U/L (4-34); AST 19 U/L (14-36); African American GFR (CKD) >90 (>60 ml/min/1.73 sqM); Albumin 3.6 g/dL (3.5-5.0); Alkaline Phosphatase 111 U/L (38-126); Anion Gap 9 mmol/L; Blood Urea Nitrogen 15 mg/dL (7-17); Carbon Dioxide 26 mmol/L (22-30); Chloride 97 mmol/L (98-107); Magnesium 1.7 mg/dL (1.6-2.3); Non-African American GFR(CKD) >90 (>60 ml/min/1.73 sqM); Potassium 4.3 mmol/L (3.5-5.1); Sodium 132 mmol/L (137-145); Total Bilirubin 0.2 mg/dL (0.2-1.3); Total Protein 6.2 g/dL (6.3-8.2)
[2019-10-27 21:01] LABS: INR 0.9 (<1.2); Prothrombin Time 9.5 sec (9.0-12.0)
[2019-10-27 21:09] LABS: Partial Thromboplastin Time 21.5 sec (22.0-30.0)
[2019-10-27 21:12] LABS: Glucose 535 mg/dL (74-99)
[2019-10-27] MEDS ORDERED: SODIUM CHLORIDE 0.9% 1,000 ML IV STA (21:16)
--- NOTE | 2019-10-27 21:31 | XR ---
EXAMINATION: XR chest 2V DATE AND TIME: 10/27/2019 9:27 PM CLINICAL INDICATION: PHH; Chest Pain TECHNIQUE: PA and lateral COMPARISON: 07/27/2019 FINDINGS: The lungs are clear. The pleural spaces are negative. The cardiac silhouette is not enlarged. The remainder of the mediastinal silhouette is unremarkable. The skeletal structures and soft tissues are negative for acute findings. IMPRESSION: NO ACUTE PROCESS.
[2019-10-27] MEDS ORDERED: INSULIN ASPART (NovoLOG) 100 UNIT/ML VIAL SQ ONE ×3 (21:59→23:52)
[2019-10-27] MEDS ORDERED: LABETALOL 5 MG/ML VIAL MDV IVP STA (22:02)
[2019-10-27] MEDS ORDERED: NITROGLYCERIN SL TABS 0.4 MG TAB SUBLINGUAL PRN (22:25)
[2019-10-27 23:07] LABS: Glucose,Whole Blood 400 mg/dL (75-99)
[2019-10-27 23:50] LABS: Glucose,Whole Blood 454 mg/dL (75-99)
[2019-10-27] MEDS ORDERED: SODIUM CHLORIDE 0.9% 500 ML 500 ML IV STA (23:52)
[2019-10-28] MEDS ORDERED: metFORMIN 500 MG TAB PO SCH (07:30)
[2019-10-28 07:33] LABS: Glucose,Whole Blood 306 mg/dL (75-99)
[2019-10-28] MEDS ORDERED: CAFFEINE CITRATE 60 MG/3 ML VIAL IV PRN (07:39)
[2019-10-28] MEDS ORDERED: REGADENOSON 0.4 MG/5 ML SYRINGE IV ONE (07:39)
[2019-10-28] MEDS ORDERED: AMINOPHYLLINE 500 MG/20 ML VIAL IV PRN (07:39)
[2019-10-28 08:40] LABS: Cholesterol 116 mg/dL (<200); HDL Cholesterol 48 mg/dL (40-60); LDL Cholesterol,Calculated 35 mg/dL (0-99); Triglycerides 167 mg/dL (<150)
[2019-10-28] MEDS: INSULIN ASPART (NovoLOG) 100 UNIT/ML VIAL SQ SCH ×2 (08:53→13:14)
[2019-10-28] MEDS ORDERED: FUROSEMIDE 20 MG TAB PO SCH (09:00)
[2019-10-28] MEDS ORDERED: CYCLOBENZAPRINE 10 MG TAB PO SCH (09:00)
[2019-10-28] MEDS ORDERED: ASPIRIN 325 MG TAB PO SCH (09:00)
[2019-10-28] MEDS ORDERED: LISINOPRIL 2.5 MG TAB PO SCH (09:00)
[2019-10-28] MEDS ORDERED: METOPROLOL TARTRATE 25 MG TAB PO SCH (09:00)
[2019-10-28] MEDS ORDERED: SPIRONOLACTONE 25 MG TAB PO SCH (09:00)
[2019-10-28] MEDS ORDERED: ASPIRIN 81 MG PO SCH (09:00)
[2019-10-28 10:18] VITALS: BP 120/74; PULSE 58; RESP 12; TEMP 98.2
--- NOTE | 2019-10-28 10:29 | ECHOF ---
Referral Reason:pre-lexiscan MEASUREMENTS -------- HEIGHT: 160.0 cm WEIGHT: 77.1 kg BP: 131/84 RVIDd: 3.5 cm (< 3.3) IVSd: 1.3 cm (0.6 - 1.1) LVIDd: 4.8 cm (3.9 - 5.3) LVPWd: 1.4 cm (0.6 - 1.1) IVSs: 1.8 cm LVIDs: 3.7 cm LVPWs: 1.9 cm LA Diam: 4.0 cm (2.7 - 3.8) LAESV Index (A-L): 24.54 ml/m Ao Diam: 3.5 cm (2.0 - 3.7) AV Cusp: 1.9 cm (1.5 - 2.6) MV EXCURSION: 15.618 mm (> 18.000) MV EF SLOPE: 73 mm/s (70 - 150) EPSS: 1.2 cm MV E Barry: 0.60 m/s MV DecT: 321 ms MV A Barry: 0.52 m/s MV E/A Ratio: 1.15 RAP: 5.00 mmHg RVSP: 29.32 mmHg FINDINGS -------- This was a technically good study. The left ventricular size is normal. There is moderate concentric left ventricular hypertrophy. O verall left ventricular systolic function is mild-moderately impaired with, an EF between 40 - 45 %. The right ventricle is mildly enlarged. Normal LA size by volume 22+/-6 ml/m2. The right atrium is normal in size. Interatrial and interventricular septum intact. The aortic valve is trileaflet and appears structurally normal. There is trace to mild mitral regurgitation. Mild tricuspid regurgitation present. Right ventricular systolic pressure is normal at < 35 mmHg. Trace/mild (physiologic) pulmonic regurgitation. The aortic root size is normal. Normal inferior vena cava with normal inspiratory collapse consistent with estimated right atrial pre ssure of 5 mmHg. There is no pericardial effusion. CONCLUSIONS -------- 1. This was a technically good study. 2. The left ventricular size is normal. 3. There is moderate concentric left ventricular hypertrophy. 4. Overall left ventricular systolic function is mild-moderately impaired with, an EF between 40 - 45 %. 5. The right ventricle is mildly enlarged. 6. Normal LA size by volume 22+/-6 ml/m2. 7. The right atrium is normal in size. 8. Interatrial and interventricular septum intact. 9. The aortic valve is trileaflet and appears structurally normal. 10. There is trace to mild mitral regurgitation. 11. Mild tricuspid regurgitation present. 12. Right ventricular systolic pressure is normal at < 35 mmHg. 13. Trace/mild (physiologic) pulmonic regurgitation. 14. The aortic root size is normal. 15. Normal inferior vena cava with normal inspiratory collapse consistent with estimated right atrial pressure of 5 mmHg. 16. There is no pericardial effusion. PODIATRIC MEDICINE DOCTOR: Lauryn Valentino RDCS
[2019-10-28] MEDS ORDERED: DIPYRIDAMOLE 44 MG in SODIUM CHLORIDE 0.9% 41.2 ML IV ONE (11:00)
[2019-10-28] MEDS ORDERED: DIPYRIDAMOLE IV ONE (11:00)
[2019-10-28] MEDS ORDERED: SODIUM CHLORIDE 0.9% IV ONE (11:00)
[2019-10-28] MEDS ORDERED: AMINOPHYLLINE 500 MG/20 ML VIAL IV ONE (11:20)
[2019-10-28 12:28] LABS: Glucose,Whole Blood 308 mg/dL (75-99)
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
--- NOTE | 2019-10-28 12:54 | NM ---
EXAMINATION TYPE: NM stress persantine cardiolit DATE OF EXAM: 10/28/2019 COMPARISON: NONE HISTORY: 48-year-old female with chest pain and shortness of breath, palpitations, 30 pack-year his tory of smoking, diabetes, hypertension, high cholesterol. TECHNIQUE: After the intravenous administration of 10.56 mCi Tc 99m Sestamibi - Cardiolite resting S PECT images acquired 60 minutes post injection. The patient received 44 mg Persantine, 26.1 mCi Tc 99m Sestamibi - Stress images obtained 60 minutes post injection FINDINGS: Review of stress and rest SPECT images demonstrates a large area of fixed perfusion abnormality along the inferolateral wall. Some limitations due to prominent adjacent GI artifact on the rest images. G ated analysis shows global hypokinesis with an estimated left ventricular ejection fraction of 26 %. TID is calculated at 1.1, within normal limits. IMPRESSION: Very large area of fixed perfusion defect along the inferolateral wall suggests an area of previous l arge infarct. Clinically correlate. No convincing reversibility is seen. There is global hypokinesis with estimated LVEF of 46%. Correlate for possible ischemic cardiomyopathy.
[2019-10-28] MEDS: REPAGLINIDE 1 MG TAB PO SCH ×2 (13:13→13:16)
[2019-10-28 20:15] LABS: Hemoglobin A1C 14.7 % (4.0-6.0)
[2019-10-28] MEDS ORDERED: ATORVASTATIN 40 MG TAB PO SCH (21:00)
--- NOTE | 2019-11-01 15:07 | EST ---
EXERCISE STRESS AGE: 48 SEX: F HT: 63" WT: 170 lbs. PROTOCOL: Persantine Cardiolite STAGE: DURATION OF EXERCISE: HEART RATE REST: 58 BLOOD PRESSURE REST: 139/90 MAXIMUM HEART RATE ACHIEVED: 84 MAXIMUM BLOOD PRESSURE: 166/97 85% MPHR: 145 100% MPHR: 170 METS: INDICATION: Chest pain. Baseline EKG shows sinus rhythm, intraventricular conduction delay and PVCs. The patient was given intravenous Persantine over a period of 4 minutes as per protocol. Did not have chest pain or diagnostic ST-segment depression. CONCLUSION: 1. Inconclusive EKG part of the stress test due to baseline EKG abnormalities. 2. Cardiolite portion of the stress test will be reported separately. MMODL / IJN: [id number] /
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
--- NOTE | 2019-11-02 14:32 | P.DS ---
Providers Date of admission: 10/27/19 22:23 Expected date of discharge: 10/28/19 Attending physician: Zuly West Consults: 10/27/19 22:25 Consult Physician Urgent Consulting Provider: [facility] Consult Reason/Comments: chest pain Do you want consulting provider notified?: Yes, Notify in am Primary care physician: Juanpablo Dejesus Hospital Course: Discharge diagnosis Chest pain. Ruled out ACS. Hyperglycemia with uncontrolled diabetes type 2 Chronic CHF systolic dysfunction ejection fraction 40-45% Coronary artery disease with mild disease in the LAD Hypertension Hyperlipidemia Dilated cardiomyopathy Ongoing nicotine addiction Noncompliance with medications and follow up DVT prophylaxis Obesity with BMI 30.1 Hospital course Patient is a 48-year-old female with a known history of dilated cardiomyopathy, hyperlipidemia, chronic CHF with systolic dysfunction, hypertension, diabetes type 2, nicotine dependence came to ER with complaints of chest pain. Pain is mainly in the mid retrosternal intermittent chest pain for the past 5 days. Sharp pain. No radiation to the arm back to the jaw. Denied any associated shortness of breath. No dizziness or lightheadedness. No palpitations. No headache. Denied any recent illnesses or sick contacts. Next and patient had cardiac catheterization in 2014 revealing severely impaired LV systolic function with ejection fraction 20% with global hypokinesia. Dilated LV and intermediate disease of the LAD. Most recent echocardiogram showed ejection fraction 25-30% with moderate global hypokinesis. Normal RVSP. Repeat echocardiogram done today showed his ejection fraction 40-40%. EKG shows sinus rhythm with incomplete left bundle branch block. T-wave abnormalities in the lateral leads. Chest x-ray showed no acute cardio pulmonary process. Laboratory data showed only 6.3, hemoglobin 13.8 and platelets 98 Sodium 132, potassium 4.3, creatinine 0.59 and a blood sugar on admission is 535. Magnesium 1.9 troponin 3 negative Patient was continued on telemetry monitoring. ACS ruled out. 2-D echo cardiac exam showed his ejection fraction 40-45% with hypokinesia. Cardiology recommends Persantine stress test. Stress test showed large area of fixed perfusion abnormality along the inferolateral wall. Shows global hypokinesis with dizziness fraction 26%.. Cardiology request no further intervention at this time. Continue the home medications including aspirin statins and beta blockers. Patient will be continued on oral hypoglycemic medications and insulin was started. 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 Patient was advised to follow with primary care physician for further management of diabetes. Continued with insu bj sliding scale. Smoking cessation has been counseled extensively. PHYSICAL EXAMINATION: Patient is lying in the bed comfortably, no acute distress, awake alert and oriented.. HEENT: Normocephalic. Neck is supple. Pupils reactive. Nostrils clear. Oral cavity is moist. Ears reveal no drainage. Neck reveals no JVD, carotid bruits, or thyromegaly. CHEST EXAMINATION: Trachea is central. Symmetrical expansion. Lung talbert clear to auscultation and percussion. CARDIAC: Normal S1, S2 with no gallops. No murmurs ABDOMEN: Soft. Bowel sounds normal. No organomegaly. No abdominal bruits. Extremities: reveal no edema. No clubbing or cyanosis Neurologically awake, alert, oriented x3 with well-coordinated movements. No focal deficits noted Skin: No rash or skin lesions. Psychiatric: Coperative. Nonsuicidal Musculoskeletal: No joint swelling or deformity. Normal range of motion. Discharge vitals reviewed. Patient Condition at Discharge: Good Plan - Discharge Summary Discharge Rx Participant: No New Discharge Prescriptions: Continue Spironolactone [Aldactone] 25 mg PO DAILY Cyclobenzaprine [Flexeril] 10 mg PO BID Lisinopril 2.5 mg PO DAILY rOPINIRole HCL [Requip] 0.5 mg PO HS Atorvastatin [Lipitor] 40 mg PO HS Furosemide [Lasix] 20 mg PO DAILY metFORMIN HCL 1,000 mg PO BID Repaglinide 0.5 mg PO TID Aspirin EC [Ecotrin Low Dose] 81 mg PO DAILY Metoprolol Tartrate [Lopressor] 25 mg PO DAILY Discharge Medication List Cyclobenzaprine [Flexeril] 10 mg PO BID 06/22/14 [History] Spironolactone [Aldactone] 25 mg PO DAILY 06/22/14 [History] Lisinopril 2.5 mg PO DAILY 02/12/15 [History] Atorvastatin [Lipitor] 40 mg PO HS 05/23/19 [History] Furosemide [Lasix] 20 mg PO DAILY 05/23/19 [History] rOPINIRole HCL [Requip] 0.5 mg PO HS 05/23/19 [History] metFORMIN HCL 1,000 mg PO BID 07/28/19 [History] Aspirin EC [Ecotrin Low Dose] 81 mg PO DAILY 10/27/19 [History] Metoprolol Tartrate [Lopressor] 25 mg PO DAILY 10/27/19 [History] Repaglinide 0.5 mg PO TID 10/27/19 [History] Follow up Appointment(s)/Referral(s): Juanpablo Dejesus MD [Primary Care Provider] - 1-2 days Rigo Parker MD [STAFF PHYSICIAN] - 11/14/19 12:45 pm Discharge Disposition: HOME SELF-CARE
== END 2019-10-28 15:55 | disposition home or self-care (01) ==
LOC: EC 19:43 → 1SOBS 22:23
PROVIDERS: ADMIT Internal Medicine; ATTEND Internal Medicine
DX: R07.89 Other chest pain (principal); E11.65 Type 2 diabetes mellitus with hyperglycemia; I50.22 Chronic systolic (congestive) heart failure; I25.10 Atherosclerotic heart disease of native coronary artery without angina pectoris; I11.0 Hypertensive heart disease with heart failure; E78.5 Hyperlipidemia, unspecified; I42.0 Dilated cardiomyopathy; I44.7 Left bundle-branch block, unspecified; I08.1 Rheumatic disorders of both mitral and tricuspid valves; F17.200 Nicotine dependence, unspecified, uncomplicated; Z91.19 Patient's noncompliance with other medical treatment and regimen; Z03.818 Encounter for observation for suspected exposure to other biological agents ruled out; Z79.899 Other long term (current) drug therapy; Z79.4 Long term (current) use of insulin; Z79.1 Long term (current) use of non-steroidal anti-inflammatories (NSAID); Z79.82 Long term (current) use of aspirin; M19.90 Unspecified osteoarthritis, unspecified site; Z87.19 Personal history of other diseases of the digestive system; Z98.890 Other specified postprocedural states; Z86.14 Personal history of Methicillin resistant Staphylococcus aureus infection; Z89.421 Acquired absence of other right toe(s); Z80.0 Family history of malignant neoplasm of digestive organs
CPT/HCPCS: 93005 ×2; 96360; 96361; 99285; 36415; 93017; 93306; 80061; 80053; 83735; 84484 ×2; 85025; 85610; 85730; 83036; 71046; 78452; G0378 ×2; U0003; A9500; J1245

== ENCOUNTER 2020-04-20 21:08 | Emergency (ER) | payer MEDICARE, OTHER ==
[2020-04-20 21:13] VITALS: RESP 18; TEMP 98
[2020-04-20 21:38] LABS: Glucose,Whole Blood 402 mg/dL (75-99)
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
[2020-04-20] MEDS ORDERED: SODIUM CHLORIDE 0.9% 1,000 ML IV STA (22:01)
[2020-04-20 22:32] LABS: Basophils # (A) 0.1 k/uL (0-0.2); Basophils % (A) 1 %; Eosinophils # (A) 0.2 k/uL (0-0.7); Eosinophils % (A) 2 %; HCT 51.4 % (34.0-46.0); HGB 16.2 gm/dL (11.4-16.0); Lymphocytes # (A) 3.4 k/uL (1.0-4.8); Lymphocytes % (A) 29 %; MCH 25.7 pg (25.0-35.0); MCHC 31.6 g/dL (31.0-37.0); MCV 81.4 fL (80.0-100.0); Mean Platelet Volume 7.5; Monocytes # (A) 0.6 k/uL (0-1.0); Monocytes % (A) 6 %; Neutrophils % (A) 61 %; Platelet Count 377 k/uL (150-450); RBC 6.31 m/uL (3.80-5.40); RDW 13.7 % (11.5-15.5); WBC 11.5 k/uL (3.8-10.6)
[2020-04-20 22:42] LABS: ALT 32 U/L (4-34); AST 40 U/L (14-36); African American GFR (CKD) >90 (>60 ml/min/1.73 sqM); Albumin 4.7 g/dL (3.5-5.0); Alkaline Phosphatase 126 U/L (38-126); Anion Gap 10 mmol/L; Blood Urea Nitrogen 26 mg/dL (7-17); Calcium 10.1 mg/dL (8.4-10.2); Carbon Dioxide 25 mmol/L (22-30); Chloride 99 mmol/L (98-107); Glucose 404 mg/dL (74-99); Non-African American GFR(CKD) 82 (>60 ml/min/1.73 sqM); Sodium 134 mmol/L (137-145); Total Bilirubin 0.8 mg/dL (0.2-1.3); Total Protein 7.9 g/dL (6.3-8.2)
[2020-04-20 22:44] LABS: Potassium 6.2 mmol/L (3.5-5.1)
[2020-04-20] MEDS ORDERED: DEXTROSE 50% SYRINGE 50 ML IVP ONE (22:53)
[2020-04-20] MEDS ORDERED: INSULIN REGULAR 100 UNIT/ML VIAL IV ONE ×2 (22:53→23:47)
[2020-04-20] MEDS ORDERED: FUROSEMIDE 10 MG/ML 4 ML VIAL IV STA (23:49)
[2020-04-21] MEDS: SODIUM CHLORIDE 0.9% 1,000 ML IV STA ×2 (00:02→00:18)
[2020-04-21] MEDS ORDERED: RX INFO: IV CONTRAST WAS GIVEN 1 EACH MISC MISCELLANE PRN (00:18)
[2020-04-21 00:39] LABS: Magnesium 1.8 mg/dL (1.6-2.3); Phosphorus 4.5 mg/dL (2.5-4.5)
--- NOTE | 2020-04-21 01:00 | CT ---
EXAM: CT Head Without Intravenous Contrast CLINICAL HISTORY: ITS.REASON CT Reason: paralysis TECHNIQUE: Axial computed tomography images of the head/brain without intravenous contrast. CTDI is 45.2 mGy and DLP is 1018 mGy-cm. This CT exam was performed using one or more of the following dose reduction techniques: automated exposure control, adjustment of the mA and/or kV according to patient size, and/or use of iterative reconstruction technique. COMPARISON: No relevant prior studies available. FINDINGS: Brain: No acute infarct, hemorrhage, mass or edema. Ventricles: Unremarkable. No ventriculomegaly. Bones/joints: Unremarkable. No acute calvarial fracture. Soft tissues: Unremarkable. Sinuses: Mild mucosal thickening in the paranasal sinuses Mastoid air cells: Partial opacification of the left mastoid air cells. IMPRESSION: No acute findings in the head/brain. EXAM: CT Cervical Spine Without Intravenous Contrast CLINICAL HISTORY: ITS.REASON CT Reason: paralysis TECHNIQUE: Axial computed tomography images of the cervical spine without intravenous contrast. CTDI is 14.27 mGy and DLP is 377.1 mGy-cm. This CT exam was performed using one or more of the following dose reduction techniques: automated exposure control, adjustment of the mA and/or kV according to patient size, and/or use of iterative reconstruction technique. COMPARISON: No relevant prior studies available. FINDINGS: Vertebrae: No acute fracture or traumatic malalignment. Discs/spinal canal/neural foramina: No acute findings. No significant spinal canal or neuroforaminal stenosis. Soft tissues: Unremarkable. Thyroid: Heterogeneous nodule within the right thyroid gland measured to 2.1 cm. IMPRESSION: 1. No acute fracture or traumatic malalignment. 2. Heterogeneous nodule within the right thyroid gland measured to 2.1 cm. Consider nonemergent sonogram for further characterization.
[2020-04-21 01:18] LABS: Glucose,Whole Blood 181 mg/dL (75-99)
[2020-04-21 01:26] LABS: Appearance,Urine Clear (Clear); Bilirubin,Urine Negative (Negative); Blood,Urine Negative (Negative); Color,Urine Light Yellow; Glucose,Urine (UA) 4+ (Negative); Hyaline Casts,Urine 3 /lpf (0-2); Ketones,Urine Negative (Negative); Leukocyte Esterase,Urine Moderate (Negative); Mucus,Urine Rare /hpf; Nitrite,Urine Negative (Negative); Protein,Urine Negative (Negative); RBC,Urine 5 /hpf (0-5); Specific Gravity,Urine 1.018 (1.001-1.035); Squamous Epithelial Cell,Urine 3 /hpf (0-4); Urobilinogen,Urine <2.0 mg/dL (<2.0); WBC,Urine 15 /hpf (0-5)
--- NOTE | 2020-04-21 01:28 | CT ---
EXAM: CT Chest With Intravenous Contrast CLINICAL HISTORY: ITS.REASON CT Reason: paralysis TECHNIQUE: Axial computed tomography images of the chest with intravenous contrast. CTDI is 11.97 mGy and DLP is 489.6 mGy-cm. This CT exam was performed using one or more of the following dose reduction techniques: automated exposure control, adjustment of the mA and/or kV according to patient size, and/or use of iterative reconstruction technique. COMPARISON: No relevant prior studies available. FINDINGS: Lungs: No pulmonary embolus. Pleural space: Unremarkable. No pneumothorax. No significant effusion. Heart: Coronary artery calcifications. No significant pericardial effusion. Bones/joints: Unremarkable. No acute fracture. No dislocation. Soft tissues: Unremarkable. Vasculature: No thoracic aortic dissection or aneurysm. Lymph nodes: Unremarkable. Liver: Hepatic steatosis. Question lobular contour liver which may represent early cirrhosis. IMPRESSION: No pulmonary embolus.
--- NOTE | 2020-04-21 01:30 | CT ---
EXAM: CT Left Upper Extremity With Intravenous Contrast CLINICAL HISTORY: ITS.REASON CT Reason: paralysis TECHNIQUE: Axial computed tomography images of the left upper extremity with intravenous contrast. CTDI is 20.47 mGy and DLP is 955.7 mGy-cm. This CT exam was performed using one or more of the following dose reduction techniques: automated exposure control, adjustment of the mA and/or kV according to patient size, and/or use of iterative reconstruction technique. COMPARISON: No relevant prior studies available. FINDINGS: Bones/joints: Unremarkable. No acute fracture. No dislocation. Soft tissues: Unremarkable. No abnormal contrast enhancement. IMPRESSION: Normal left upper extremity CT.
[2020-04-21 01:33] LABS: Amphetamine Screen,Urine Detected (NotDetected); Barbiturate Screen,Urine Not Detected (NotDetected); Benzodiazepines Screen,Urine Not Detected (NotDetected); Cocaine Screen,Urine Not Detected (NotDetected); Methadone Screen, Urine Not Detected (NotDetected); Opiate Screen,Urine Not Detected (NotDetected); Oxycodone Screen, Urine Not Detected (NotDetected); Phencyclidine Screen,Urine Not Detected (NotDetected); Tricyclic Antidepressant,Urine Not Detected (NotDetected); Urn Cannabinoid Scrn Not Detected (NotDetected)
[2020-04-21 02:51] VITALS: BP 92/70; PULSE 88
== END 2020-04-21 05:15 | disposition other institution (70) ==
LOC: EC 21:08
DX: E11.65 Type 2 diabetes mellitus with hyperglycemia (principal); E87.5 Hyperkalemia; G56.32 Lesion of radial nerve, left upper limb; G83.24 Monoplegia of upper limb affecting left nondominant side; I11.0 Hypertensive heart disease with heart failure; I50.9 Heart failure, unspecified; E78.5 Hyperlipidemia, unspecified; F17.200 Nicotine dependence, unspecified, uncomplicated; Z79.4 Long term (current) use of insulin; Z79.899 Other long term (current) drug therapy; Z79.82 Long term (current) use of aspirin; Z95.5 Presence of coronary angioplasty implant and graft; Z90.49 Acquired absence of other specified parts of digestive tract; Z86.14 Personal history of Methicillin resistant Staphylococcus aureus infection
CPT/HCPCS: 99285 ×2; 96374 ×2; 96361 ×7; 36415 ×2; 93005 ×2; 80053; 82009; 83735; 84100; 84132; 85025; 81001; 80306; 73201; 72125; 70450; 71260; J1940; Q9967

== ENCOUNTER → 2021-11-26 | Outpatient (CLI) | payer MEDICARE, OTHER ==
--- NOTE | 2021-11-26 14:07 | US ---
EXAMINATION TYPE: US extremity nonvasc complt RT DATE OF EXAM: 11/26/2021 COMPARISON: NONE CLINICAL HISTORY: L02.611 CUTANEOUS ABSCESS OF RIGHT FOOT. Right foot redness and lump laterally infe rior to pinky toe area. Scanned area of concern no abnormalities seen. IMPRESSION: no abnormalities seen.
== END | disposition home or self-care (01) ==
LOC: RADUSWWP 12:43
PROVIDERS: ATTEND Podiatrist Foot & Ankle Surgery
DX: L02.611 Cutaneous abscess of right foot (principal)